=== PATIENT | female | born 1960 | race Caucasian/White ===

== ENCOUNTER → 2016-11-24 | Outpatient (CLI) | payer MEDICARE, OTHER ==
[~2016-11-24] MED LIST: ADVAIR 250/501 EA INH; ADVAIR 500/501 E1 INH; AMOXICILLIN500 MG PO; ATIVAN0.5 MG PO; BREO ELLIPTA 21 EACH IH; CIPRO500 MG PO; CIPROFLOXACIN500 MG PO; CLARITIN10 MG PO; DULER200 INH; FERROUS SULFAT325 M1 PO; FIBERCON625 MG PO; FISH OIL 10001000 MG PO; FLAGYL500 MG PO; FLEXERIL10 MG PO; GENACOTE325 MG PO; Ipratropium Brom3 ML IH; LOPID600 M1 PO; LOPID600 MG PO; LOPRESSOR50 MG PO; LYRICA50 MG PO; LYRICA75 M1 PO; LYRICA75 MG PO; METFORMIN500 MG PO; METOPROLOL25 MG PO; MIRALAX POWDER17 G1 PO; MIRALAX17 GM/DOSE PO; MOTRIN800 MG PO; MULTIPLE VITAMI1 CAP PO; NEURONTIN600 MG PO; NITRODISC T; NITROGLYCER0.4 MG/HR TD; PLAVIX75 MG PO; PRAVACHOL80 MG PO; PREDNICOT20 MG PO; PRILOSEC20 MG PO; PROMETHAZINE25 M1 PO; PROZAC10 MG PO; PROZAC40 MG PO; REGLAN10 MG PO; SENOKOT S PO; SUPER B COMPLEX1 CAP PO; TESSALON PERLE200 MG PO; ULTRAM50 MG PO; VENTOLIN0.09 MG/AC IH; VIBRAMYCIN100 MG PO; VICO75300 PO; VICODIN 5-3001 EACH PO; VICODIN 5/500 505 MG PO; VICODIN ES 7501 TA1 PO; VICODIN ES 7501 TAB PO; VITAMIN C500 M4 PO; VITAMIN D32000 I1 PO; ZITHROMAX Z PA250 MG PO; ZYPREXA5 MG PO
--- NOTE | ~2016-11-24 | PR ---
[place], [place] PROGRESS NOTE NAME: RANULFO BELLO [facility] #: [id number] UNIT #: [id number] ROOM: DOCTOR: SAPPHIRE HellerUZAIR BIRTHDATE: [birth year] DOS: 11/24/2016 FOLLOWUP WOUND CARE NOTE CHIEF COMPLAINT: Followup of abdominal wound. HISTORY OF PRESENT ILLNESS: The location is on the anterior abdominal wall. The quality is surgical. The duration is chronic since January. The severity is moderate to severe. She has had this wound now present for many months. We have had a lot of improvement in the depth of the wound; however, the wound continues to be open and quite large. Recently she had had some increased breakdown and wound margins have become larger and there was continued amount of drainage. The area was cultured last week after debridement and it grew heavy growth of enterococcus, which was vancomycin resistant as well as Acinetobacter, which was also multidrug resistant. The patient was started on Dakin's solution to be cleansed with daily and then using Maxorb silver on it. We initially had just tried some brief TheraHoney, but she has just been using the Maxorb silver at this time. She was started on oral antibiotics, 2 different antibiotics to cover the 2 different organisms, although the patient does not have signs of sepsis or any systemic symptoms. The wound does appear to be infected clinically, which is causing this nonhealing state and increasing wound margins. The patient reports no specific complaints at this time. No fevers or chills. PHYSICAL EXAMINATION: VITAL SIGNS: Stable. She is not having any problems with diarrhea. Blood pressure is 102/60, pulse of 60, respirations 16, temperature is 98.1. The wound margins are slightly bigger at 19.6 x 11 x 0.3 at the deepest depth. However, the depth is essentially 0.1 throughout most of the wound except for a small area near the 9 o'clock position, which has been deeper in that area, but overall it is 0.1. There does not appear to be any perfuse necrotic tissue. There does seem to be some new epithelial tissue sporadically present within the base of the wound, which was not apparent on last visit. A selective debridement was done today just to remove the fibrin and slough from the wound. This is not a deep debridement, just a selective. There was really no bleeding. Post-debridement measurements are unchanged. The instrument utilized was a curette. Cetacaine spray was used for topical anesthesia. 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 We are treating her with antibiotics. She is going to continue with Dakin solution for now and a Maxorb silver dressing for now as well. Once that seems if this is stabilized, we would like to try to use the Amniofil for her, but I do not want to use it while we have evidence of increased critical colonization. Followup is in 1 week. The patient is to call us before that if there are any new issues. [place], [place] PROGRESS NOTE [facility] #: [id number] UNIT #: [id number] ROOM: DOCTOR: UZAIR LEARY M.D. BIRTHDATE: [birth year] UZAIR LEARY MD CM:RENATO [id number] UZAIR LEARY M.D. 11/25/16 1022 interface
== END ==
LOC: WOUNDCARE 01:23
DX: T81.31XD Disruption of external operation (surgical) wound, not elsewhere classified, subsequent encounter (principal); E11.9 Type 2 diabetes mellitus without complications; B95.2 Enterococcus as the cause of diseases classified elsewhere; Y83.9 Surgical procedure, unspecified as the cause of abnormal reaction of the patient, or of later complication, without mention of misadventure at the time of the procedure

== ENCOUNTER → 2016-11-29 | Outpatient (CLI) | payer MEDICARE, OTHER ==
--- NOTE | ~2016-11-29 | PR ---
[place], [place] PROGRESS NOTE NAME: RANULFO BELLO [facility] #: [id number] UNIT #: [id number] ROOM: DOCTOR: SAPPHIRE HellerUZAIR BIRTHDATE: [birth year] DOS: 11/29/2016 WOUND CARE FOLLOWUP NOTE CHIEF COMPLAINT: Followup of abdominal wound. HISTORY OF PRESENT ILLNESS: The location is the anterior abdominal wall. The quality is surgical. Duration is 10 months. Severity is moderate to severe. She has had a very large open wound since she has had surgery for diverticular repair. The wound has been progressively getting smaller; however, has become stagnant with the past couple of weeks and some worsening of the wound with increased areas of breakdown. The patient was noted to have large amounts of Enterococcus and Acinetobacter growing in the wound. She has been started on antibiotics, has 2 more days left as well as cleansing the wound with Dakin solution. The wound is definitely getting smaller. At this point, she is using the Maxorb silver at home. It still does drain a bit, but overall, is not worse. OBJECTIVE: VITAL SIGNS: Stable. Blood pressure is 100/60, pulse of 60, respirations 16, temperature is 98.1. SKIN: The wound is measuring 15.5 x 8.2 x 0.3 in depth. Throughout this, this interspersed some areas of epithelialization and small islands of epithelial tissue are noted, so it does look improved. Overall, there is really minimal fibrin slough present at the base of the wound. Selective debridement was done today. The instrument used was a curette. There was a minimal amount of bleeding. The tissue removed was just fibrin slough, biofilm only. Post-debridement measurements are unchanged. Bleeding was controlled with pressure. The patient tolerated the procedure well. A timeout was conducted prior to the start of the procedure and Cetacaine spray was used for topical anesthesia. ASSESSMENT AND PLAN: Improving wound margins at this time since we have been treating infection. We will back down on the Dakin's to just every other day cleansing with Dakin's. In the meantime, she will just use normal saline on the opposite days and she will continue with the Maxorb silver. I am hoping the next week, we will be able to use amniofill further improve and progress with healing. Followup is in one week. [place], [place] PROGRESS NOTE NAME: RANULFO BELLO UNIT #: [id number] ROOM: DOCTOR: UZAIR LEARY M.D. BIRTHDATE: [birth year] UZAIR LEARY MD CM:RENATO [id number] UZAIR LEARY M.D. 12/01/16 1546 interface
== END | disposition home or self-care (01) ==
LOC: WOUNDCARE 01:31
DX: T81.31XD Disruption of external operation (surgical) wound, not elsewhere classified, subsequent encounter (principal); E11.9 Type 2 diabetes mellitus without complications; Y83.9 Surgical procedure, unspecified as the cause of abnormal reaction of the patient, or of later complication, without mention of misadventure at the time of the procedure

== ENCOUNTER → 2017-01-26 | Outpatient (CLI) | payer MEDICARE, OTHER ==
--- NOTE | ~2017-01-26 | PR ---
[place], [place] PROGRESS NOTE NAME: RANULFO BELLO [facility] #: [id number] UNIT #: [id number] ROOM: DOCTOR: SAPPHIRE HellerUZAIR BIRTHDATE: [birth year] DOS: 01/26/2017 CHIEF COMPLAINT: An open abdominal wound. HISTORY OF PRESENT ILLNESS: Elements: The location is the abdominal wall. The quality is surgical. The wound has been present almost a year. This is a 56-year-old female who underwent elective surgery for diverticulitis and ended up with an open abdominal wound that was quite large and deep that was left to heal by secondary intention. She had been seen by multiple surgeons for consultation regarding closure and most recently was seen last week for another opinion and the surgeon also stated that the patient should just wait for further healing and to not consider surgery at this time. She has been using Mepilex Transfer dressing which seems to really be absorbing a lot more than it had before. She had been using Maxorb before and this seems to be really helping with her. In general, she is doing fairly well without any specific complaints. PHYSICAL EXAMINATION: VITAL SIGNS: Stable. Blood pressure is 90/52, pulse of 64, respirations 16, temperature is 98.2. SKIN: The wound is measuring 21.5 x 10.6 x 0.3. Definitely it looks clean. There is really no surrounding erythema. There is very minimal fibrin slough present, but overall looks good and there is an island of skin growing in the middle of that. A debridement was done. The tissue removed was fibrin, slough, and subcutaneous tissue. This was accomplished with a curette. The patient tolerated the debridement well. Since the wound appears stable at this time without any clinical signs of infection, we will go ahead and use the AmnioFill graft which we have had for her. This was applied on the entire wound, avoiding the island where there was skin growing. It was rehydrated with some normal saline and left in place to incorporate afterwards. Adaptic was applied as well as Steri-Strips. A secondary dressing was used over this. ASSESSMENT AND PLAN: Surgical wound, chronic. At this time, we used the AmnioFill today and I would like to see her again on Tuesday to reevaluate. She is to keep the AmnioFill and Adaptic in place until coming back to the Wound Clinic. She is to call if there are any concerns or problems before then. Have her follow up early next Tuesday for evaluation. I will also continue with her oral antibiotics for now, as this does seem to really be helping with the drainage that she had before. [place], [place] PROGRESS NOTE NAME: RANULFO BELLO UNIT #: [id number] ROOM: DOCTOR: UZAIR LEARY M.D. BIRTHDATE: [birth year] UZAIR LEARY MD CM:RENATO [phone] UZAIR LEARY M.D. 01/26/17 1658 interface
== END ==
LOC: WOUNDCARE 03:12
DX: T81.31XA Disruption of external operation (surgical) wound, not elsewhere classified, initial encounter (principal); E11.628 Type 2 diabetes mellitus with other skin complications; Y83.8 Other surgical procedures as the cause of abnormal reaction of the patient, or of later complication, without mention of misadventure at the time of the procedure

== ENCOUNTER → 2017-01-31 | Outpatient (CLI) | payer MEDICARE, OTHER ==
--- NOTE | ~2017-01-31 | PR ---
[place], [place] PROGRESS NOTE NAME: RANULFO BELLO [facility] #: [id number] UNIT #: [id number] ROOM: DOCTOR: SAPPHIRE HellerUZAIR BIRTHDATE: [birth year] DOS: 01/31/2017 CHIEF COMPLAINT: An open abdominal wound. HISTORY OF PRESENT ILLNESS: The location is the abdominal wall. The quality is surgical. The wound has been present for almost a year. This is a 56-year-old female who underwent elective surgery for diverticulitis, ended up with a very complex open abdominal wound that has been quite deep and quite large. It has been gradually improving; however, we have had some setbacks recently with increased drainage and some evidence of critical colonization/wound infection. She was being treated with Bactrim, which seems to have helped, the drainage got quite excessive and this seems to be managed much more efficiently with the Mepilex transfer that she has. She did have one-time trial last week of AmnioFill that was placed in the wound base over the entire wound. It did cover quite a bit of the wound and then an Adaptic was placed over this and then the Mepilex transfer over that. She was brought in a little bit earlier to ensure that this remains stable; however, she said shortly after that within 2 days, the Adaptic came off and she seemed to feel that most of the AmnioFill had dissolved into the wound by that time, but had only been in place for a day or two afterwards. OBJECTIVE: VITAL SIGNS: She is afebrile, pulse is 62, respirations 16, blood pressure is 108/64. The wound is measuring 19.5 x 10 in width x 0.3 in depth. There is really no overt necrotic tissue. There is no sign of cellulitis. The wound looks fairly clean. No debridement was done today. ASSESSMENT AND PLAN: Surgical wound, chronic. At this time, we have used the AmnioFill. It has been almost a week. I would like to hold off on debridement for at least another week and then have her come back for followup in one week. We will continue with the Mepilex transfer for now and have her finish up her course of oral antibiotics. She is to come back in 1 week. In the meantime, the patient said she was able to get a hold of a plastic surgeon that she is going to be evaluated for a second opinion regarding skin grafting, that is going to be early in February, and we will see if we can get the patient approved for another biologic agent that will facilitate wound closure. [place], [place] PROGRESS NOTE NAME: RANULFO BELLO UNIT #: [id number] ROOM: DOCTOR: UZAIR LEARY M.D. BIRTHDATE: [birth year] UZAIR LEARY MD CM:RENATO [phone] UZAIR LEARY M.D. 01/31/17 2330 interface
== END ==
LOC: WOUNDCARE 01:40
DX: T81.31XD Disruption of external operation (surgical) wound, not elsewhere classified, subsequent encounter (principal); E11.628 Type 2 diabetes mellitus with other skin complications; I48.91 Unspecified atrial fibrillation; Y83.8 Other surgical procedures as the cause of abnormal reaction of the patient, or of later complication, without mention of misadventure at the time of the procedure

== ENCOUNTER → 2017-02-07 | Outpatient (CLI) | payer MEDICARE, OTHER ==
--- NOTE | ~2017-02-07 | PR ---
[place], [place] PROGRESS NOTE NAME: RANULFO BELLO [facility] #: [id number] UNIT #: [id number] ROOM: DOCTOR: SAPPHIRE Heller,UZAIR BIRTHDATE: [birth year] DOS: 02/07/2017 CHIEF COMPLAINT: Open abdominal wound. HISTORY OF PRESENT ILLNESS: The location is the abdominal wall. The quality is surgical, the wound has been present for a year. She underwent elective surgery for diverticulitis and has had a complex abdominal wound that has been healing by secondary intention. She has had some issues and setbacks with increased drainage and critical colonization wound infection, which seems to be under control at this time. She had an AmnioFill graft placed 2 weeks ago and she comes in for a wound care visit today without any specific complaints. There is no change in drainage and overall no fevers or chills. No pain is noted. OBJECTIVE: VITAL SIGNS: Stable. Blood pressure is 100/62, pulse is 60, respirations 16, temperature 98.2. ABDOMEN: The wound is measuring 18 x 9.8 x 0.3. It looks overall about the same. There is no surrounding cellulitis. There is no overt infection. There is really no visible necrotic tissue, debridement was deferred today. ASSESSMENT AND PLAN: Chronic abdominal wound, very slow healing. We will hold off on debridement today and use a collagen for now as well as she can go back to her Mepilex Transfer after that, so will have her follow up in 1 week. I hope that we can get her approved for possible skin substitute as soon as possible. UZAIR LEARY MD CM:PNTRANS [id number] UZAIR LEARY M.D. 02/08/17 0334 interface
== END ==
LOC: WOUNDCARE 04:43
DX: T81.31XD Disruption of external operation (surgical) wound, not elsewhere classified, subsequent encounter (principal); E11.628 Type 2 diabetes mellitus with other skin complications; Y83.8 Other surgical procedures as the cause of abnormal reaction of the patient, or of later complication, without mention of misadventure at the time of the procedure

== ENCOUNTER → 2017-02-14 | Outpatient (CLI) | payer MEDICARE, OTHER ==
--- NOTE | ~2017-02-14 | PR ---
[place], [place] PROGRESS NOTE NAME: RANULFO BELLO [facility] #: [id number] UNIT #: [id number] ROOM: DOCTOR: UZAIR LEARY M.D. BIRTHDATE: [birth year] DOS: 02/14/2017 CHIEF COMPLAINT: Open abdominal wound. HISTORY OF PRESENT ILLNESS: The location is the abdominal wall. The quality is surgical. The wound has been present for a year. She has had elective diverticulitis surgery with a complex abdominal wound that has been healing by secondary intention. She has had no specific new complaints. We have held off on debridement for 2 weeks in a row as she had an amnio filled graft placed 3 weeks ago. She has no specific complaints. She is wanting to exercise on her stationary bike. OBJECTIVE: VITAL SIGNS: As follows: Blood pressure is 98/60, pulse of 62, respirations 16, temperature is 98.1. WOUND EXAMINATION: The wound is measuring 19.8 x 12. The length is measuring slightly larger; however, the overall appearance of the wound is good. It does not look any different. The measurements are a little bit larger at 12 x 0.3. There is an island of epithelial tissue in the center of the wound that is noted. It looks clean. There is minimal fibrin and slough. The overall appearance of the wound looks good. Debridement was done. The tissue removed was just fibrin and slough. There was a minimal amount of bleeding. The post-debridement measurements are unchanged. The patient tolerated the debridement well. Cetacaine spray was used for topical anesthesia. Timeout was conducted prior to the start of the procedure. ASSESSMENT AND PLAN: Chronic abdominal wound. I believe she is ready for a skin graft if possible. She has seen Surgery who felt that she was not a surgical candidate. She has another consultation with a new plastic surgeon next month. We will continue with the collagen for now and then when she goes home, she will use her Mepitel Transfer. I believe that she will need a biologic to help close this wound. We will see if this is a possibility in the near future. Follow up in 1 week. [place], [place] PROGRESS NOTE NAME: RANULFO BELLO [facility] #: [id number] UNIT #: [id number] ROOM: DOCTOR: UZAIR LEARY M.D. BIRTHDATE: [birth year] UZAIR LEARY MD CM:RENATO [phone] UZAIR LEARY M.D. 02/14/17 1026 interface
== END ==
LOC: WOUNDCARE 09:21
DX: T81.31XD Disruption of external operation (surgical) wound, not elsewhere classified, subsequent encounter (principal); E11.628 Type 2 diabetes mellitus with other skin complications; Y83.8 Other surgical procedures as the cause of abnormal reaction of the patient, or of later complication, without mention of misadventure at the time of the procedure

== ENCOUNTER → 2017-02-21 | Outpatient (CLI) | payer MEDICARE, OTHER ==
--- NOTE | ~2017-02-21 | PR ---
[place], [place] PROGRESS NOTE NAME: EUGENIAFRANKLINRANULFO J [facility] #: [id number] UNIT #: [id number] ROOM: DOCTOR: SAPPHIRE HellerUZAIR BIRTHDATE: [birth year] DOS: 02/21/2017 CHIEF COMPLAINT: Open abdominal wound. HISTORY OF PRESENT ILLNESS: Location is the abdominal wall. The quality is surgical. The wound has been present for a year. She has had almost a year elective diverticulitis surgery with complex abdominal wound postoperatively secondary to multiple postop complications. She has been healing by secondary intention. She has been seen by Surgery twice and has also been seen for possible skin substitute graft placement operatively which was elected to not be done. She continues to have an open abdominal wound. The wound has been draining less overall. It is not causing any pain or discomfort. No fevers or chills. She offers no specific complaints. PHYSICAL EXAMINATION: VITAL SIGNS: Are as follows: She is afebrile, pulse is 60, respirations 16, blood pressure is 128/62. WOUND EXAMINATION: The wound is measuring 18.4 x 10.5 x 0.2. There is minimal fibrin slough present in the base of the wound. There is a small island of epithelium in the middle of the wound that appears to be slightly bigger than the last time we saw her. There is some area of erythema around the periwound, which is consistent with a fungal type appearance, which is new. A debridement was done today. The tissue removed was fibrin, slough and subcutaneous tissue. There was moderate amount of bleeding. Post-debridement measurements are unchanged. INSTRUMENTS USED: Curette, forceps and scissors. Cetacaine spray used for topical anesthesia and bleeding was controlled with pressure. ASSESSMENT AND PLAN: Large abdominal wound, which has been slowly healing by secondary intention. We are using a collagen and a Mepitel Transfer. She does have an evidence of some fungal type appearance on the periwound. So we will add an antifungal cream to the periwound area only. She is going to be evaluated by a plastic surgeon for possible skin grafting hopefully she will be a candidate. Followup is next week. [place], [place] PROGRESS NOTE NAME: RANULFO BELLO [facility] #: [id number] UNIT #: [id number] ROOM: DOCTOR: UZAIR LEARY M.D. BIRTHDATE: [birth year] UZAIR LEARY MD CM:RENATO [phone] UZAIR LEARY M.D. 02/22/17 0235 interface
== END ==
LOC: WOUNDCARE 02:10
DX: T81.31XA Disruption of external operation (surgical) wound, not elsewhere classified, initial encounter (principal); S31.109D Unspecified open wound of abdominal wall, unspecified quadrant without penetration into peritoneal cavity, subsequent encounter; E11.628 Type 2 diabetes mellitus with other skin complications; I48.91 Unspecified atrial fibrillation; Y83.8 Other surgical procedures as the cause of abnormal reaction of the patient, or of later complication, without mention of misadventure at the time of the procedure; X58.XXXD Exposure to other specified factors, subsequent encounter

== ENCOUNTER → 2017-03-02 | Outpatient (CLI) | payer MEDICARE, OTHER ==
--- NOTE | ~2017-03-02 | PR ---
[place], [place] PROGRESS NOTE NAME: EUGENIAFRANKLINRANULFO [facility] #: [id number] UNIT #: [id number] ROOM: DOCTOR: UZAIR LEARY M.D. BIRTHDATE: [birth year] DOS: 03/02/2017 CHIEF COMPLAINT: Followup of an open abdominal wound. HISTORY OF PRESENT ILLNESS: Location is the abdominal wall. The quality is surgical. The wound has been present for almost a year now. She had a very complex diverticulitis surgery with multiple postop complications that has left her with a very large deep abdominal wound that has been slowly healing by secondary intention. She is doing well at this time without any specific complaints. Drainage appears to be controlled with a Mepilex. No other specific complaints are noted. She has a Plastic Surgical consult early next month. PHYSICAL EXAMINATION: VITAL SIGNS: Stable. Blood pressure is 100/64, pulse of 60, respirations 18, temperature is 97.8. WOUND EXAM: The wound is measuring about the same in length 18.4, the width is slightly less at 10, the depth is 0.2. Overall, it looks clean. There is some minimal fibrin slough at the wound base. There is a good amount of healthy granulation tissue. No active cellulitis. Debridement was done, The tissue removed was fibrin slough only. There was moderate amount of bleeding that was controlled with pressure. Post-debridement measurements are unchanged. Curette was used for the procedure. Cetacaine spray was applied for topical anesthesia. ASSESSMENT AND PLAN: Postop abdominal wound that is slowly healing. There is quite a large island of epithelial tissue in the center of the wound, which appears stable at this time and seems to be growing. The wound remains, however, quite large. We have tried to see if she is a candidate for EpiFix graft. Her insurance did not approve for this, so this is not an option. She is going to see a surgeon next month. Epidermal harvesting is also a consideration; however, we do not have it available at this time. Followup is in one week. We will continue with the collagen in the Wound Clinic and Mepilex at home. [place], [place] PROGRESS NOTE NAME: RANULFO BELLO [facility] #: [id number] UNIT #: [id number] ROOM: DOCTOR: UZAIR LEARY M.D. BIRTHDATE: [birth year] UZAIR LEARY MD CM:RENATO [phone] UZAIR LEAYR M.D. 03/02/17 1027 interface
== END ==
LOC: WOUNDCARE 02-10 10:19
DX: T81.31XD Disruption of external operation (surgical) wound, not elsewhere classified, subsequent encounter (principal); E11.628 Type 2 diabetes mellitus with other skin complications; Y83.8 Other surgical procedures as the cause of abnormal reaction of the patient, or of later complication, without mention of misadventure at the time of the procedure

== ENCOUNTER → 2017-03-07 | Outpatient (CLI) | payer MEDICARE, OTHER ==
--- NOTE | ~2017-03-07 | PR ---
[place], [place] PROGRESS NOTE NAME: RANULFO BELLO [facility] #: [id number] UNIT #: [id number] ROOM: DOCTOR: SAPPHIRE Heller,UZAIR BIRTHDATE: [birth year] DOS: 03/07/2017 CHIEF COMPLAINT: Abdominal wound. HISTORY OF PRESENT ILLNESS: The location is the abdominal wall. The quality is surgical. The wound has been present for a year now. She has had a very complex history of multiple abdominal surgeries that left her with a large abdominal wall wound, which has been healing by secondary intention. She has no specific complaints. She is going to have see a plastic surgeon next month for an opinion about surgical intervention to close the wound. Otherwise, she has no specific complaints. No change in drainage. PHYSICAL EXAMINATION: VITAL SIGNS: Stable. Blood pressure is 102/62, pulse is 60, respirations 18, temperature is 97.9. WOUND EXAM: The wound is measuring 18 x 10 x 0.2. There is still an area of epithelialization in the center of the wound. The wound itself looks fairly clean, and there is no surrounding cellulitis or purulence. Debridement was done. The tissue removed was fibrin, slough and subcutaneous tissue. There was minimal to moderate amount of bleeding that was controlled with pressure. Post-debridement measurements are unchanged. ASSESSMENT AND PLAN: Chronic slowly healing abdominal wall wound, which has been stalled for a while now. We will continue with the collagen and the Mepilex transfer and have her follow up in 1 week. She is going to follow up with Plastic Surgery for possible surgical intervention. Another option that we can try again is EpiFix, allograft with the mesh perhaps. We filled the forms before, and she was denied coverage; however, since the wound is still staying open and has not epithelialized, I would like to consider a repeat try, so the information was written on the paperwork. Hopefully, she will be approved, and we can consider this if Plastic Surgery does not feel she is a surgical candidate. Followup in one week. UZAIR LEARY MD CM:RENATO [phone] UZAIR LEARY M.D. 03/07/172119 interface
== END ==
LOC: WOUNDCARE 02:05
DX: T81.31XA Disruption of external operation (surgical) wound, not elsewhere classified, initial encounter (principal); E11.628 Type 2 diabetes mellitus with other skin complications; Y83.8 Other surgical procedures as the cause of abnormal reaction of the patient, or of later complication, without mention of misadventure at the time of the procedure

== ENCOUNTER → 2017-03-14 | Outpatient (CLI) | payer MEDICARE, OTHER ==
--- NOTE | ~2017-03-14 | PR ---
[place], [place] PROGRESS NOTE NAME: RANULFO BELLO [facility] #: [id number] UNIT #: [id number] ROOM: DOCTOR: SAPPHIRE HellerUZAIR BIRTHDATE: [birth year] DOS: 03/14/2017 CHIEF COMPLAINT: Abdominal wound. HISTORY OF PRESENT ILLNESS: The location is the abdominal wall, the quality is surgical. The wound has been present for a year, very complex history of multiple abdominal surgeries for diverticulitis that ended up with a very large abdominal wound. It was quite deep that was healing secondary intention. She has been in the Wound Clinic for approximately almost a year. The wound has healed a significant amount in the very beginning and then we have had some stalling in the progress of the wound. Actually, she has just been to see general surgeons for possible closure. They did not feel she is a candidate for that. She is going to see a plastic surgeon today for another opinion to see if there are any options for surgical closure. Otherwise, she complains of no specific complaints. Her sugars are well controlled. She is not having any increased amount of drainage. No fevers or chills are noted. OBJECTIVE: VITAL SIGNS: Are as follows, temp is 98.2, pulse is 62, respirations 18, and blood pressure is 100/60. The wound is measuring 18 x 8.6 x 0.2. So, the measurements seem a little bit less wide than last time. There is some minimal fibrin slough present in the base of the wound. The periwound looks clean. There is some adherent slough present in the periwound area. No cellulitis is noted. No purulence is noted. A selective debridement was done to remove just fibrin and slough only. This was accomplished with a curette, forceps, and scissors. This is a selective debridement only. Tissue removed was nonviable only. Also, there is minimal bleeding. Cetacaine spray was used for topical anesthesia and a timeout was conducted prior to the start of the procedure. Post-debridement measurements are unchanged. ASSESSMENT AND PLAN: Chronic slowly healing abdominal wound. She is going to see a plastic surgeon today for possible closure and if she is not considered a candidate, I do believe we have approval to use EpiFix on her and I think she will be a good candidate for this, so we will see what the plastic surgeon says first. Followup is in 1 week. [place], [place] PROGRESS NOTE NAME: [facility]: [id number] UNIT #: [id number] ROOM: DOCTOR: UZAIR LEARY M.D. BIRTHDATE: [birth year] UZAIR LEARY MD CM:RENATO [phone] UZAIR LEARY M.D. 03/15/17106 interface
== END ==
LOC: WOUNDCARE 00:51
DX: T81.31XD Disruption of external operation (surgical) wound, not elsewhere classified, subsequent encounter (principal); E11.628 Type 2 diabetes mellitus with other skin complications; Y83.8 Other surgical procedures as the cause of abnormal reaction of the patient, or of later complication, without mention of misadventure at the time of the procedure

== ENCOUNTER → 2017-03-21 | Outpatient (CLI) | payer MEDICARE, OTHER ==
--- NOTE | ~2017-03-21 | PR ---
[place], [place] PROGRESS NOTE NAME: RANULFO BELLO [facility] #: [id number] UNIT #: [id number] ROOM: DOCTOR: SAPPHIRE HellerUZAIR BIRTHDATE: [birth year] DOS: 03/21/2017 CHIEF COMPLAINT: Abdominal wound. HISTORY OF PRESENT ILLNESS: The location of the wounded is the abdominal wall. The quality is surgical, it has been present for a year. She had a very complex history of multiple surgeries that ended up with the large abdominal wound that was quite deep and has been open healing by secondary intention. She has been coming to the Wound Clinic for 49 weeks now, and we have continued to heal quite slowly in the very last couple of weeks. The wound has filled in quite a bit and now just lacks final closure, she was seen by Plastic Surgery last week who felt that surgery could be done, but apparently once her hernia repair and her fistula repair is prior to surgery. She says she is definitely going to have surgery at some point soon for this, but first they want her to have her rectovaginal fistula fixed first. In addition, they told her that she did not need any dressings other than a simple ABD pad, so she just went with their recommendations. PHYSICAL EXAMINATION: VITAL SIGNS: Stable. Temperature is 97.5, pulse of 60, respirations 16, blood pressure is 112/60. WOUND EXAM: The wound is measuring slightly longer at 23.3 x 10 x 0.2. There is evidence of wound margins are bigger likely secondary to the fact that the dressing is not absorbing as much drainage as before. The island that is present in the middle of the abdomen also looks to have been deteriorated somewhat. Selective debridement was done today. The tissue removed was just nonviable fibrin and slough. There was moderate bleeding that was controlled with pressure. The patient tolerated the debridement well. ASSESSMENT AND PLAN: Chronic abdominal wound, I would continue with the dressings that we recommended for now. At least those dressings help absorb drainage and keep the drainage at the bay and do seem to help the wound margins. She is going to have surgery for final closure at some point in the near future. Also, we will continue with wound care until then. Followup is in one week. She is going to have a CT scan done that was ordered by the surgeon. So hopefully, we will get that report as well. [place], [place] PROGRESS NOTE [facility]: [id number] UNIT #: [id number] ROOM: DOCTOR: UZAIR LEARY M.D. BIRTHDATE: [birth year] UZAIR LEARY MD CM:RENATO [id number] UZAIR LEARY M.D. 03/22/17 0314 interface
== END ==
LOC: WOUNDCARE 01:09
DX: T81.31XD Disruption of external operation (surgical) wound, not elsewhere classified, subsequent encounter (principal); E11.628 Type 2 diabetes mellitus with other skin complications; Y83.8 Other surgical procedures as the cause of abnormal reaction of the patient, or of later complication, without mention of misadventure at the time of the procedure

== ENCOUNTER → 2017-03-28 | Outpatient (CLI) | payer MEDICARE, OTHER ==
--- NOTE | ~2017-03-28 | PR ---
[place], [place] PROGRESS NOTE NAME: RANULFO BELLO [facility] #: [id number] UNIT #: [id number] ROOM: DOCTOR: SAPPHIRE HellerUZAIR BIRTHDATE: [birth year] DOS: 03/28/2017 CHIEF COMPLAINT: Abdominal wound. HISTORY OF PRESENT ILLNESS: Location of wound is the abdominal wall. The quality is surgical. It has been present for a year without healing. She is going to have a surgical intervention for closure at some point, but the date has not been set yet. She is still getting worked up as far as she had an abdominal CT scan done at [place]. We do not have the report. She is supposed to have a rectovaginal fistula repair as well as a hernia repair prior to her getting a plastic surgical closure, so these are going to be done first. She has no other specific complaints. Her daughter is here with her, and thinks that the wound is looking smaller. She also reports unfortunately that there is some irritation around her stoma, and there seems to be some ulcerations there. She did not bring any of the material to change her colostomy, but does describe ulceration and irritation around the stoma wound. States she has Coloplast at home, but has not used it yet. I did advise her to go ahead and let us have her bring her supplies next week so that we can look at the area, to try the Coloplast for now, and also she reports that at times her mother walks around without a dressing on at all on the abdominal area and feels that she is potentially at risk of contamination because of this. The patient has no other specific complaints. OBJECTIVE: VITAL SIGNS: Stable. Blood pressure is 110/64, pulse of 60, respirations 16, temperature is 97.7. WOUND EXAM: The wound is measuring less this week than last week 21 x 9 x 0.2. It definitely looks smaller. There is still an island in the distal part of the wound that is still present. There is no purulence or surrounding cellulitis. A selective debridement was done. The tissue removed with fibrin, slough, and biofilm. There was a minimal amount of bleeding, 90% of the area was debrided. The patient tolerated the debridement well, minimal amount of bleeding that was controlled with pressure. A curette was utilized. ASSESSMENT AND PLAN: Chronic abdominal wall wound secondary to surgical procedure. We are going to continue with wound care for now to hopefully prevent the wound infection as this will delay her surgery, and we do not know when she is going to have any of her surgical interventions. Hopefully, they will be done soon. In the meantime, we did recommend for her to continue to keep the wound care orders that we have written for as well as to keep the area covered and protected. Followup is in 1 week. [place], [place] PROGRESS NOTE [facility] [id number] UNIT #: [id number] ROOM: DOCTOR: UZAIR LEARY M.D. BIRTHDATE: [birth year] UZAIR LEARY MD CM:RENATO [phone] UZAIR LEARY M.D. 03/29/17 0502 interface
== END ==
LOC: WOUNDCARE 03:38
DX: T81.31XD Disruption of external operation (surgical) wound, not elsewhere classified, subsequent encounter (principal); E11.628 Type 2 diabetes mellitus with other skin complications; Y83.8 Other surgical procedures as the cause of abnormal reaction of the patient, or of later complication, without mention of misadventure at the time of the procedure

== ENCOUNTER → 2017-04-04 | Outpatient (CLI) | payer MEDICARE, OTHER ==
--- NOTE | ~2017-04-04 | PR ---
[place], [place] PROGRESS NOTE NAME: RANULFO BELLO [facility] #: [id number] UNIT #: [id number] ROOM: DOCTOR: SAPPHIRE Heller,UZAIR BIRTHDATE: [birth year] DOS: 04/04/2017 CHIEF COMPLAINT: Abdominal wound. HISTORY OF PRESENT ILLNESS: The location is the abdominal wall. The quality is surgical. She has had it for a year without complete healing. She is being worked up for surgical procedures to reverse her colostomy and repair of rectovaginal fistula as well as surgery for final closure of the wound. The patient had a CT scan done in [place]. She does not know what the report says. She comes in today for a routine wound care visit without any complaints with the wound. No change in drainage. No pain, no fevers or chills. PHYSICAL EXAMINATION: She is afebrile, pulse is 64, respirations 16, and blood pressure is 98/60. The wound is measuring 20.2 x 10 x 0.2. It looks fairly clean. There is minimal fibrin slough present. It is still, however, overall has not changed significantly within the past several months. A selective debridement was done to remove just fibrin, slough and biofilm. There was no bleeding. The patient tolerated the debridement well. Curette was utilized. Cetacaine spray was used for topical anesthesia. A timeout was conducted prior to start of the procedure. ASSESSMENT AND PLAN: Chronic surgical wound stalled. We are awaiting her for possible surgical intervention hopefully soon. We will continue wound care; however, to prevent any problems with infection that may delay surgery. UZAIR LEARY MD CM:PNTRANS [phone] UZAIR LEARY M.D. 04/05/17 0841 interface
== END ==
LOC: WOUNDCARE 03:39
DX: T81.31XD Disruption of external operation (surgical) wound, not elsewhere classified, subsequent encounter (principal); E11.628 Type 2 diabetes mellitus with other skin complications; I48.91 Unspecified atrial fibrillation; Y83.8 Other surgical procedures as the cause of abnormal reaction of the patient, or of later complication, without mention of misadventure at the time of the procedure

== ENCOUNTER 2017-04-10 15:13 | Emergency (ER) | payer MEDICARE, OTHER | END 2017-04-10 15:50 | disposition home or self-care (01) | LOC: ED 15:13 | DX: S82.491A Other fracture of shaft of right fibula, initial encounter for closed fracture (principal); Z79.82 Long term (current) use of aspirin; Z90.49 Acquired absence of other specified parts of digestive tract; Z79.899 Other long term (current) drug therapy; W22.8XXA Striking against or struck by other objects, initial encounter; Y93.89 Activity, other specified; Y92.9 Unspecified place or not applicable; Y99.9 Unspecified external cause status ==

== ENCOUNTER → 2017-04-21 | Outpatient (CLI) | payer MEDICARE, OTHER ==
--- NOTE | ~2017-04-21 | PR ---
[place], [place] PROGRESS NOTE NAME: RANULFO BELLO [facility] #: [id number] UNIT #: [id number] ROOM: DOCTOR: SAPPHIRE HellerUZAIR BIRTHDATE: [birth year] DOS: 04/21/2017 CHIEF COMPLAINT: Followup of abdominal wound. HISTORY OF PRESENT ILLNESS: Location is the abdominal wall. It is a surgical wound. She has had it for a year without complete healing. The wound is filled in quite a bit, but we have not had epithelialization. She is going to have a surgical intervention for repair of a rectovaginal fistula as well as reversal of colostomy and sometime after that may have final closure of her abdominal wound from surgery. However, we do have the reports from the physician yet or notes from his office. She has no specific complaints. She has not been here for 3 weeks. She has also broken her foot and now is wearing a boot, which is a new thing for her. She says her sugars are good. OBJECTIVE: Her vitals are stable. Blood pressure is 198/60, pulse is 60, respirations 18, temp 97.8. The measurements are 22 x 11 x 0.1. There is some slight erythema around the margins of the wound. There is no odor or purulence detected or overt cellulitis. A debridement was done today. The tissue removed was fibrin, slough and biofilm. There was a moderate amount of bleeding that was controlled with pressure. The instrument used was a curette. The patient tolerated the debridement well, 100% of the wound was debrided. ASSESSMENT AND PLAN: Chronic abdominal wound, which has stalled. We will continue with the Mepitel transfer; however, I would like to use silver with it in addition for bioburden control. She has been off silver for quite some time now and there are some mildly increased margins of the wound and some inflammation around the edge of the wounds. So, I would like to use that for bioburden control for now and follow up in 1 week. I will request the CT scan report that she had done recently as well as any notes from the surgeon for her future surgical intervention. The patient also did report that she was placed on Bactrim for a urinary tract infection and now she has a rash from it, so she believes SHE IS ALLERGIC TO BACTRIM. So, we will make sure we get this on her chart. [place], [place] PROGRESS NOTE NAME: RANULFO BELLO UNIT #: [id number] ROOM: DOCTOR: SAPPHIRE Heller,UZAIR BIRTHDATE: [birth year] UZAIR LEARY MD CM:RENATO [phone] UZAIR ELARY M.D. 04/23/17 1040 interface
== END ==
LOC: WOUNDCARE 02:52
DX: T81.31XD Disruption of external operation (surgical) wound, not elsewhere classified, subsequent encounter (principal); E11.628 Type 2 diabetes mellitus with other skin complications; Y83.8 Other surgical procedures as the cause of abnormal reaction of the patient, or of later complication, without mention of misadventure at the time of the procedure

== ENCOUNTER → 2017-04-22 | Outpatient (CLI) | payer MEDICARE, OTHER | END | disposition home or self-care (01) | LOC: ORTHO 00:43 | DX: S82.891D Other fracture of right lower leg, subsequent encounter for closed fracture with routine healing (principal); S82.401D Unspecified fracture of shaft of right fibula, subsequent encounter for closed fracture with routine healing; X58.XXXD Exposure to other specified factors, subsequent encounter ==

== ENCOUNTER → 2017-04-28 | Outpatient (CLI) | payer MEDICARE, OTHER ==
--- NOTE | ~2017-04-28 | PR ---
[place], [place] PROGRESS NOTE NAME: RANULFO BELLO [facility] #: [id number] UNIT #: [id number] ROOM: DOCTOR: SAPPHIRE HellerUZAIR BIRTHDATE: [birth year] DOS: 04/28/2017 CHIEF COMPLAINT: Followup of abdominal wound. HISTORY OF PRESENT ILLNESS: The location of the wound is the abdominal wall, it is a surgical wound. She has had it for a little over a year now without epithelialization yet. The wound has healed and filled in quite a bit, however, it remains open. She is scheduled to undergo surgical intervention of a rectovaginal fistula and reversal of her colostomy and that is supposedly happening on 05/24/2017 per the patient report. I still have not gotten the CT scan reports back from her studies. She states that the surgeon wants her to get her hernia repair fixed first before they can go and repair the abdominal wound, but in any case, the patient comes in today without any specific complaints. No pain, no fevers, no chills. No change in drainage. There was some inflammation last week and slightly increased margins and the dressing was changed back to silver. However, she comes in today with just the plain Mepilex transfer without silver. OBJECTIVE: The vital signs are stable. Blood pressure is 98/68, pulse of 62, respirations are 18, temperature 97.8. The wound is measuring 19.4 x 10 x 0.1. There is minimal fibrin slough present. There is good granulation tissue, looks healthy. The periwound looks healthy. There is no sign of overt infection. Debridement was done. Tissue removed was fibrin, slough, and biofilm. There was moderate bleeding that was controlled with pressure. Post-debridement measurements are unchanged. Curette was utilized. Cetacaine spray was used for topical anesthesia. The patient tolerated the procedure. ASSESSMENT AND PLAN: Postop surgical wound, which is stable at this point. I would like to try to get the CT scan report from her workup that was done at another neighboring hospital. We will continue with the Mepilex transfer, but I want to add the silver to it, and I think that it would be easier to add Arglaes powder to the Mepilex transfer as she has those dressings at home without the silver. She should follow up in the Wound Clinic in one week. [place], [place] PROGRESS NOTE [facility] [id number] UNIT #: [id number] ROOM: DOCTOR: UZAIR LEARY M.D. BIRTHDATE: [birth year] UZAIR LEARY MD CM:RENATO [id number] UZAIR LEARY M.D. 04/28/17 1101 interface
== END ==
LOC: WOUNDCARE 00:25
DX: T81.31XD Disruption of external operation (surgical) wound, not elsewhere classified, subsequent encounter (principal); Y83.8 Other surgical procedures as the cause of abnormal reaction of the patient, or of later complication, without mention of misadventure at the time of the procedure; E11.628 Type 2 diabetes mellitus with other skin complications

== ENCOUNTER → 2017-05-05 | Outpatient (CLI) | payer MEDICARE, OTHER ==
--- NOTE | ~2017-05-05 | PR ---
[place], [place] PROGRESS NOTE NAME: RANULFO BELLO [facility] #: [id number] UNIT #: [id number] ROOM: DOCTOR: SAPPHIRE HellerUZAIR BIRTHDATE: [birth year] DOS: 05/05/2017 CHIEF COMPLAINT: Followup of abdominal wound. HISTORY OF PRESENT ILLNESS: Location of the wound is the anterior abdominal wall. It is a surgical wound. She has been coming to the Wound Clinic for over a year now. The wound remains open and not healed. It is essentially stalled. She is going to be having surgery and repair of a rectovaginal fistula and reversal of her colostomy that is happening early May. She has been seen by Dr. Perry, colon and rectal surgeon. However, the patient believes that he is not going to be doing anything with her abdominal wound until her hernia is fixed. However, her daughter is here with the patient today and says she was under the impression that the wound is going to be excised and she will have final closure of the wound. I have looked at whatever paper work we have gotten from the surgeon's office and there is really no definite plan put in place on this report. It does not say what the plans are going to be. In any case, we had started the patient on Arglaes powder to see if this will help absorb some of the drainage. The patient does not seem to be happy with this topical product, it leaves a film on it, it is difficult to remove and has not really made any difference with her wound. Otherwise she has no other specific complaints. PHYSICAL EXAMINATION: VITAL SIGNS: She is afebrile. Her pulse is 64, respirations 18, blood pressure is 104/60. WOUND EXAMINATION: The wound is measuring the same at 19 x 10.8 x 0.1. There is some minimal fibrin slough present. Otherwise, it looks about fairly clean. No sign of cellulitis, no purulence, no odor. A selective debridement was done to remove fibrin, slough and biofilm. There was a moderate amount of bleeding that was controlled with pressure. Post-debridement measurements are unchanged. A curette was utilized. I was able to look at her CT scan report finally, which shows a fistula from the vagina to the rectal stump. The only plan that has mentioned in the note is, impression is to attempt to restore continuity and she may need a temporary diversion, but there is really no mention of plans regarding the abdominal wound. ASSESSMENT AND PLAN: Chronic stalled surgical wound of the abdomen. At this point we are just using a dressing that will help control drainage as she has [id number] amount of serous drainage. There is no sign of an acute infection. We will discontinue the silver. Arglaes powder was utilized to see if we can help dry it up a little bit more; however, it has not really made any difference, so we will discontinue that. I did reach out to the surgeon's office regarding their plan for surgery to see if there is any plan regarding the wound for final closure. Followup in one week. [place], [place] PROGRESS [id number] #: [id number] ROOM: DOCTOR: UZAIR LEARY M.D. BIRTHDATE: [birth year] UZAIR LEARY MD CM:PNTRANS [phone] UZAIR LEARY M.D. 05/05/17 1101 interface
== END ==
LOC: WOUNDCARE 01:54
DX: T81.31XD Disruption of external operation (surgical) wound, not elsewhere classified, subsequent encounter (principal); E11.628 Type 2 diabetes mellitus with other skin complications; I48.91 Unspecified atrial fibrillation; Y83.8 Other surgical procedures as the cause of abnormal reaction of the patient, or of later complication, without mention of misadventure at the time of the procedure

== ENCOUNTER → 2017-05-12 | Outpatient (CLI) | payer MEDICARE, OTHER | LOC: WOUNDCARE 02:19 | DX: T81.31XD Disruption of external operation (surgical) wound, not elsewhere classified, subsequent encounter (principal); E11.622 Type 2 diabetes mellitus with other skin ulcer; L89.892 Pressure ulcer of other site, stage 2; Y83.8 Other surgical procedures as the cause of abnormal reaction of the patient, or of later complication, without mention of misadventure at the time of the procedure ==

== ENCOUNTER → 2017-05-13 | Outpatient (CLI) | payer MEDICARE, OTHER | END | disposition home or self-care (01) | LOC: ORTHO 02:01 | DX: S82.401D Unspecified fracture of shaft of right fibula, subsequent encounter for closed fracture with routine healing (principal); M25.471 Effusion, right ankle; M25.771 Osteophyte, right ankle; X58.XXXD Exposure to other specified factors, subsequent encounter ==

== ENCOUNTER → 2017-05-19 | Outpatient (CLI) | payer MEDICARE, OTHER | LOC: WOUNDCARE 00:28 | DX: T81.31XD Disruption of external operation (surgical) wound, not elsewhere classified, subsequent encounter (principal); E11.622 Type 2 diabetes mellitus with other skin ulcer; L89.892 Pressure ulcer of other site, stage 2; Y83.8 Other surgical procedures as the cause of abnormal reaction of the patient, or of later complication, without mention of misadventure at the time of the procedure ==

== ENCOUNTER 2017-06-10 22:23 | Emergency (ER) | payer MEDICARE, OTHER ==
[~2017-06-10] VITALS: Ht 152.4 cm; Wt 87.5 kg
[2017-06-10 23:52] LABS: BASO % 0.5 % (0.0-1.0); EOS # 0.6 10*3/uL (0.0-0.4); EOS % 7.6 % (1.0-4.0); HEMATOCRIT 27.2 % (37.0-47.0); HEMOGLOBIN 7.9 g/dl (12.0-16.0); IG # 0.2 10*3/uL (0.0-0.1); LYMPH # 1.3 10*3/uL (1.3-4.4); LYMPH % 15.3 % (27.0-41.0); MEAN CELL VOLUME 88.3 fl (81.0-99.0); MEAN CORPUSCULAR HGB 25.6 pg (27.0-31.0); MEAN PLATELET VOLUME 11.1 fl (9.6-12.3); MONO # 0.5 10*3/uL (0.1-1.0); MONO % 6.1 % (3.0-9.0); NEUT # 5.7 10*3/uL (2.3-7.9); NEUT % 68.7 % (47.0-73.0); PLATELET COUNT AUTOMATED 333 10*3/uL (130-400); RED BLOOD COUNT 3.08 10*6/uL (4.10-5.10); RED CELL DISTRI WIDTH 15.9 % (0-14.5); WHITE BLOOD COUNT 8.3 10*3/uL (4.8-10.8)
[2017-06-11 00:02] LABS: INTERNATIONAL NORM RATIO 1.1 (2.0-3.5); PROTHROMBIN TIME 11.2 SECONDS (9.0-12.4)
[2017-06-11 00:09] LABS: BILIRUBIN NEGATIVE (NEGATIVE); BLOOD NEGATIVE (NEGATIVE); CLARITY SL CLOUDY (CLEAR); COLOR YELLOW (YELLOW); GLUCOSE TRACE (NEGATIVE); KETONE NEGATIVE (NEGATIVE); LEUKO ESTERASE TRACE (NEGATIVE); NITRITE NEGATIVE (NEGATIVE); PH 5.5 (5.0-9.0); PROTEIN TRACE (NEGATIVE); SPECIFIC GRAVITY >= 1.030 (1.005-1.030); UROBILINOGEN 0.2 E.U./dl (0.2-1.0)
[2017-06-11 00:10] LABS: ALBUMIN 2.9 gm/dl (3.1-4.5); ALKALINE PHOSPHATASE 90 U/L (45-117); BILIRUBIN, TOTAL 0.5 mg/dl (0.2-1.0); BUN 18 mg/dl (7-24); C-REACTIVE PROTEIN 4.42 MG/DL (0-0.3); CARBON DIOXIDE 21 mmol/L (21-32); CHLORIDE 114 mmol/L (98-107); EST GLOM FILT AFRICAN AMERICAN > 60 ml/min; GLUCOSE 102 mg/dL (65-99); MAGNESIUM 1.9 mg/dL (1.5-2.1); POTASSIUM 4.2 mmol/L (3.5-5.1); SGOT/AST 14 IU/L (3-35); SGPT/ALT 14 U/L (12-78); SODIUM 145 mmol/L (136-145); TOTAL PROTEIN 7.6 gm/dL (6.4-8.2)
[2017-06-11 00:11] LABS: TROPONIN I < 0.015 ng/ml (<0.045)
[2017-06-11 00:16] LABS: CALCIUM OXALATE CRYSTALS 3+; RBC 0-2 rbc/hpf (0-2); URINE REFLEX COMMENT YES (NO); WBC TNTC wbc/hpf (0-5)
[2017-06-11 00:18] LABS: BACTERIA 2+; MUCOUS TRACE
[2017-06-11 06:12] LABS: BASO % 0.4 % (0.0-1.0); EOS # 0.6 10*3/uL (0.0-0.4); EOS % 7.6 % (1.0-4.0); HEMATOCRIT 25.5 % (37.0-47.0); HEMOGLOBIN 7.5 g/dl (12.0-16.0); IG # 0.2 10*3/uL (0.0-0.1); LYMPH # 1.2 10*3/uL (1.3-4.4); LYMPH % 15.3 % (27.0-41.0); MEAN CELL VOLUME 87.9 fl (81.0-99.0); MEAN CORPUSCULAR HGB 25.9 pg (27.0-31.0); MEAN CORPUSCULAR HGB CONC 29.4 g/dl (33.0-37.0); MEAN PLATELET VOLUME 11.1 fl (9.6-12.3); MONO # 0.6 10*3/uL (0.1-1.0); MONO % 7.7 % (3.0-9.0); NEUT # 5.3 10*3/uL (2.3-7.9); PLATELET COUNT AUTOMATED 299 10*3/uL (130-400); RED CELL DISTRI WIDTH 15.9 % (0-14.5); WHITE BLOOD COUNT 7.9 10*3/uL (4.8-10.8)
== END 2017-06-11 10:08 | disposition short-term general hospital (02) ==
LOC: ED 22:23
PROVIDERS: Student in an Organized Health Care Education/Training Program
DX: K92.2 Gastrointestinal hemorrhage, unspecified (principal); N39.0 Urinary tract infection, site not specified; Z98.890 Other specified postprocedural states; Z98.51 Tubal ligation status; Z90.49 Acquired absence of other specified parts of digestive tract; Z90.710 Acquired absence of both cervix and uterus; Z79.899 Other long term (current) drug therapy; Z79.82 Long term (current) use of aspirin; Z88.1 Allergy status to other antibiotic agents; Z88.8 Allergy status to other drugs, medicaments and biological substances

== ENCOUNTER → 2017-06-10 | Outpatient (CLI) | payer MEDICARE, OTHER | END | disposition home or self-care (01) | LOC: ORTHO 03:03 | DX: S82.401D Unspecified fracture of shaft of right fibula, subsequent encounter for closed fracture with routine healing (principal); X58.XXXD Exposure to other specified factors, subsequent encounter ==

== ENCOUNTER → 2017-06-30 | Outpatient (CLI) | payer MEDICARE, OTHER | END | disposition home or self-care (01) | LOC: ORTHO 03:00 | DX: M25.472 Effusion, left ankle (principal); S82.401G Unspecified fracture of shaft of right fibula, subsequent encounter for closed fracture with delayed healing; M77.9 Enthesopathy, unspecified; X58.XXXD Exposure to other specified factors, subsequent encounter ==

== ENCOUNTER → 2017-07-11 | Outpatient (CLI) | payer MEDICARE, OTHER ==
--- NOTE | ~2017-07-11 | PR ---
[place], [place] PROGRESS NOTE NAME: RANULFO BELLO [facility] #: [id number] UNIT #: [id number] ROOM: DOCTOR: SAPPHIRE HellerUZAIR BIRTHDATE: [birth year] DOS: 07/11/2017 CHIEF COMPLAINT: Abdominal wound. HISTORY OF PRESENT ILLNESS: This is a patient known to us in the wound clinic for an unhealed abdominal wound that was present for approximately 15 months following a complicated abdominal surgery. Her care was transferred over to Surgery early this May where she had takedown of colostomy and colovaginal fistula drained pelvic abscess. She had a new colorectal anastomosis with a diverting loop Ileostomy repair of parastomal hernia and ventral hernia at which time the abdominal wound was also managed as well. In any case, that was performed on 05/24/2017. She did have some postop bleeding around the ileostomy site and had to be transfused, but she comes in today stating that the wound has been draining large amounts of fluid for approximately the past 10 days. She has been using just a plain dry sterile bandage and it is draining quite a bit of fluid. She did call the surgeon's office and apparently has an appointment scheduled for 07/27/2017. In the meantime. She was advised to come to the Wound Clinic for evaluation of the abdominal wound. She does not have any fevers or chills. There is no change in pain. There is no spreading erythema. Her sugars are stable. She does not feel ill in any way. She states she is not taking any antibiotics. Her vital signs are stable. Temperature is 97.8, pulse of 68, respirations 18, blood pressure is 100/60. SOCIAL HISTORY: She does not smoke or drink alcohol. The wound is much smaller from the last time she was here. There is a surgical wound right in the center of the abdomen with a very deep crevice. There is actually two areas that are open. One is measuring 16 x 2.5 x 1.8 cm in depth. There is no surrounding erythema. There is no odor. There was some bleeding that appears to be bleeding quite easily, but no overt necrotic tissue was present. Distal to that is another wound; apparently she had a drain placed there that is more circular, that is measuring 4.8 x 4 x 2.1 in depth, it is clean. There is no surrounding erythema or purulence noted. No debridement was done. A culture was obtained of one of the bleeding areas near the larger abdominal wound. ASSESSMENT AND PLAN: Surgical abdominal wound. At this time, I would recommend Hydrofera Blue foam dressing for this to help absorb drainage and for bioburden control. She did respond well to this in the past. She should have the dressing changed every day. We will check a culture and have her follow up in the Wound Clinic in one week. We will also fax our report to the surgeon's office so that they are aware of the dressing that we recommended for now. She is going to follow up with her surgeon in mid-July. I did call their office to let them know that she was here in our office for evaluation. [place], [place] PROGRESS NOTE NAME: [facility] [id number] UNIT #: [id number] ROOM: DOCTOR: UZAIR LEARY M.D. BIRTHDATE: [birth year] UZAIR LEARY MD CM:RENATO [id number] UZAIR LEARY M.D. 07/12/17 0550 interface
== END | disposition home or self-care (01) ==
LOC: WOUNDCARE 11:02
DX: T81.31XD Disruption of external operation (surgical) wound, not elsewhere classified, subsequent encounter (principal); E11.628 Type 2 diabetes mellitus with other skin complications; Y83.8 Other surgical procedures as the cause of abnormal reaction of the patient, or of later complication, without mention of misadventure at the time of the procedure

== ENCOUNTER → 2017-07-20 | Outpatient (CLI) | payer MEDICARE, OTHER ==
--- NOTE | ~2017-07-20 | PR ---
[place], [place] PROGRESS NOTE NAME: RANULFO BELLO [facility] #: [id number] UNIT #: [id number] ROOM: DOCTOR: SAPPHIRE HellerUZAIR BIRTHDATE: [birth year] DOS: 07/20/2017 SUBJECTIVE: The patient comes in for a followup wound care visit. CHIEF COMPLAINT. Abdominal wound. HISTORY OF PRESENT ILLNESS: This is a 57-year-old female who was seen last week for the first time after we had transferred her care to Surgery where she underwent a surgical management of her colostomy and fistula and pelvic abscess and abdominal wound. She was left, however, still with an open wound of the abdomen and she came to us for wound care evaluation last week for the first time. In any case, we saw her last week. The wound appeared clean, although she had been complaining that had been draining large amounts of fluid the past 10 days prior to her appointment with us, so she was advised by the surgeon's office to come in for an evaluation. In any case, the wound appeared clean. There was no obvious overt acute cellulitis, but it was quite deep. A wound culture was obtained and she was recommended to try Hydrofera Blue foam to the area to help with absorption of drainage; however, she did not have any dressing sent to her. She unfortunately did not call our office to let us know about that, but did continue to use her plain gauze bandages that she had before and so she reports there was continued drainage. There has been really no change in that. There is really no change in her glucose control. No fevers or chills are noted and she does not feel ill in any way. There has been no change in pain regarding the abdominal wound and no spreading erythema. She does report, however, that there is discomfort with the gauze bandages when they dry and she changes it and pulls on the wound and it causes bleeding and it is uncomfortable. OBJECTIVE: VITAL SIGNS: Stable. Temperature is 98.1, pulse of 68, respirations 18, blood pressure is 98/60. WOUND EXAMINATION: The large abdominal wound essentially appears unchanged from the prior visit last week. It is measuring 16.5 x 2.5 x 1.8. It still looks fairly clean and there is no visible necrotic tissue and there is no overt cellulitis. The distal wound that is present still noted with margins that are slightly bigger, 5.1 x 5 x 2.1. There is no visible necrotic tissue lateral to this. There is a little small serum-filled blister, which may be pressure related. It is in between the abdominal folds. No procedures were done today. The culture that we had obtained did grow some light Staph aureus, which was sensitive to multiple antibiotics. She has multiple drug allergies. That was sensitive to quinolones and she says she tolerated quinolones in the past, so we will go ahead and start her on this due to her complaints of excessive amount of drainage, although there is no overt cellulitis clinically. Levaquin 500 p.o. daily was prescribed for 7 days. I would like her to try to Hydrofera Blue foam if it can be obtained and she can have it sent to her house. If that is not available, she can use an alginate. She does have Maxorb silver at home. This is fine to go ahead and use that, but something to help with absorption of drainage is acceptable. Also, if she does not have enough to change the dressing every day, she can always change the outer gauze dressing daily and change the inner part every other day. It is fine as well. She has a followup [place], [place] PROGRESS NOTE NAME: [facility] #: [id number] UNIT #: [id number] ROOM: DOCTOR: UZAIR LEARY M.D. BIRTHDATE: [birth year] appointment with her surgeon next week. I would like her to follow up with the surgeon, and depending on what the surgeon decides, she may either follow here for further wound care or with her surgeons. I would like their opinion regarding this. Follow up in one week if it is okay with the surgeon. Otherwise, the patient will follow up with Surgery. Also, for the small little blister noted, it looks like it was pressure related. I did advise her to just keep a gentle small 4 x 4 folded in between the skin folds to keep those areas for now. UZAIR LEARY MD CM:PNTRANS [id number] UZAIR LEARY M.D. 07/21/17 0610 interface
== END | disposition home or self-care (01) ==
LOC: WOUNDCARE 01:43
DX: T81.31XD Disruption of external operation (surgical) wound, not elsewhere classified, subsequent encounter (principal); E11.628 Type 2 diabetes mellitus with other skin complications; Y83.8 Other surgical procedures as the cause of abnormal reaction of the patient, or of later complication, without mention of misadventure at the time of the procedure

== ENCOUNTER → 2017-08-02 | Outpatient (CLI) | payer MEDICARE, OTHER | END | disposition home or self-care (01) | LOC: WOUNDCARE 02:05 | DX: T81.31XD Disruption of external operation (surgical) wound, not elsewhere classified, subsequent encounter (principal); E11.628 Type 2 diabetes mellitus with other skin complications; I25.10 Atherosclerotic heart disease of native coronary artery without angina pectoris; I25.2 Old myocardial infarction; I48.91 Unspecified atrial fibrillation; J44.9 Chronic obstructive pulmonary disease, unspecified; M19.90 Unspecified osteoarthritis, unspecified site; Z90.710 Acquired absence of both cervix and uterus; Z87.891 Personal history of nicotine dependence; Y83.8 Other surgical procedures as the cause of abnormal reaction of the patient, or of later complication, without mention of misadventure at the time of the procedure ==

== ENCOUNTER → 2017-08-16 | Outpatient (CLI) | payer MEDICARE, OTHER | END | disposition home or self-care (01) | LOC: WOUNDCARE 02:13 | DX: T81.31XD Disruption of external operation (surgical) wound, not elsewhere classified, subsequent encounter (principal); E11.628 Type 2 diabetes mellitus with other skin complications; I25.10 Atherosclerotic heart disease of native coronary artery without angina pectoris; I25.2 Old myocardial infarction; I48.91 Unspecified atrial fibrillation; M19.90 Unspecified osteoarthritis, unspecified site; J44.9 Chronic obstructive pulmonary disease, unspecified; G47.30 Sleep apnea, unspecified; Z90.710 Acquired absence of both cervix and uterus; Z87.891 Personal history of nicotine dependence ==

== ENCOUNTER → 2017-08-23 | Outpatient (CLI) | payer MEDICARE, OTHER | END | disposition home or self-care (01) | LOC: WOUNDCARE 04:59 | DX: T81.31XD Disruption of external operation (surgical) wound, not elsewhere classified, subsequent encounter (principal); E11.628 Type 2 diabetes mellitus with other skin complications; I25.10 Atherosclerotic heart disease of native coronary artery without angina pectoris; I25.2 Old myocardial infarction; I48.91 Unspecified atrial fibrillation; M19.90 Unspecified osteoarthritis, unspecified site; J44.9 Chronic obstructive pulmonary disease, unspecified; Z90.710 Acquired absence of both cervix and uterus; Z87.891 Personal history of nicotine dependence; Y83.8 Other surgical procedures as the cause of abnormal reaction of the patient, or of later complication, without mention of misadventure at the time of the procedure ==

== ENCOUNTER → 2017-08-30 | Outpatient (CLI) | payer MEDICARE, OTHER | END | disposition home or self-care (01) | LOC: WOUNDCARE 03:03 | DX: T81.89XD Other complications of procedures, not elsewhere classified, subsequent encounter (principal); I25.10 Atherosclerotic heart disease of native coronary artery without angina pectoris; I25.2 Old myocardial infarction; I48.91 Unspecified atrial fibrillation; M19.90 Unspecified osteoarthritis, unspecified site; J44.9 Chronic obstructive pulmonary disease, unspecified; G47.30 Sleep apnea, unspecified; Z90.710 Acquired absence of both cervix and uterus; Z87.891 Personal history of nicotine dependence; Y83.8 Other surgical procedures as the cause of abnormal reaction of the patient, or of later complication, without mention of misadventure at the time of the procedure ==

== ENCOUNTER → 2017-09-06 | Outpatient (CLI) | payer MEDICARE, OTHER | END | disposition home or self-care (01) | LOC: WOUNDCARE 01:31 | DX: T81.31XD Disruption of external operation (surgical) wound, not elsewhere classified, subsequent encounter (principal); E11.628 Type 2 diabetes mellitus with other skin complications; I25.10 Atherosclerotic heart disease of native coronary artery without angina pectoris; I25.2 Old myocardial infarction; I48.91 Unspecified atrial fibrillation; M19.90 Unspecified osteoarthritis, unspecified site; J44.9 Chronic obstructive pulmonary disease, unspecified; Z90.710 Acquired absence of both cervix and uterus; Z87.891 Personal history of nicotine dependence; Y83.8 Other surgical procedures as the cause of abnormal reaction of the patient, or of later complication, without mention of misadventure at the time of the procedure ==

== ENCOUNTER → 2017-09-13 | Outpatient (CLI) | payer MEDICARE, OTHER | END | disposition home or self-care (01) | LOC: WOUNDCARE 02:34 | DX: T81.31XD Disruption of external operation (surgical) wound, not elsewhere classified, subsequent encounter (principal); E11.628 Type 2 diabetes mellitus with other skin complications; Z87.891 Personal history of nicotine dependence; Z90.710 Acquired absence of both cervix and uterus; Y83.8 Other surgical procedures as the cause of abnormal reaction of the patient, or of later complication, without mention of misadventure at the time of the procedure ==

== ENCOUNTER → 2017-09-14 | Outpatient (CLI) | payer MEDICARE, OTHER ==
[2017-09-14 15:28] LABS: BILIRUBIN NEGATIVE (NEGATIVE); BLOOD NEGATIVE (NEGATIVE); CLARITY CLEAR (CLEAR); COLOR YELLOW (YELLOW); GLUCOSE NEGATIVE (NEGATIVE); KETONE NEGATIVE (NEGATIVE); LEUKO ESTERASE 1+ (NEGATIVE); NITRITE NEGATIVE (NEGATIVE); PH 5.5 (5.0-9.0); SPECIFIC GRAVITY 1.025 (1.005-1.030); UROBILINOGEN 0.2 E.U./dl (0.2-1.0)
== END ==
LOC: LAB 15:11
PROVIDERS: Internal Medicine
DX: N39.0 Urinary tract infection, site not specified (principal)

== ENCOUNTER → 2017-09-20 | Outpatient (CLI) | payer MEDICARE, OTHER | END | disposition home or self-care (01) | LOC: WOUNDCARE 01:45 | DX: T81.31XD Disruption of external operation (surgical) wound, not elsewhere classified, subsequent encounter (principal); E11.628 Type 2 diabetes mellitus with other skin complications; L92.9 Granulomatous disorder of the skin and subcutaneous tissue, unspecified; I25.10 Atherosclerotic heart disease of native coronary artery without angina pectoris; I25.2 Old myocardial infarction; I48.91 Unspecified atrial fibrillation; M19.90 Unspecified osteoarthritis, unspecified site; J44.9 Chronic obstructive pulmonary disease, unspecified; Z87.891 Personal history of nicotine dependence; Z90.710 Acquired absence of both cervix and uterus; Y83.8 Other surgical procedures as the cause of abnormal reaction of the patient, or of later complication, without mention of misadventure at the time of the procedure ==

== ENCOUNTER → 2017-09-27 | Outpatient (CLI) | payer MEDICARE, OTHER | END | disposition home or self-care (01) | LOC: WOUNDCARE 03:23 | DX: T81.89XD Other complications of procedures, not elsewhere classified, subsequent encounter (principal); L92.9 Granulomatous disorder of the skin and subcutaneous tissue, unspecified; E11.9 Type 2 diabetes mellitus without complications; I25.10 Atherosclerotic heart disease of native coronary artery without angina pectoris; I25.2 Old myocardial infarction; I48.91 Unspecified atrial fibrillation; M19.90 Unspecified osteoarthritis, unspecified site; J44.9 Chronic obstructive pulmonary disease, unspecified; G47.30 Sleep apnea, unspecified; Z90.710 Acquired absence of both cervix and uterus; Z87.891 Personal history of nicotine dependence; Y83.8 Other surgical procedures as the cause of abnormal reaction of the patient, or of later complication, without mention of misadventure at the time of the procedure ==

== ENCOUNTER → 2017-10-04 | Outpatient (CLI) | payer MEDICARE, OTHER | END | disposition home or self-care (01) | LOC: WOUNDCARE 08:20 | DX: T81.89XD Other complications of procedures, not elsewhere classified, subsequent encounter (principal); E11.628 Type 2 diabetes mellitus with other skin complications; L92.9 Granulomatous disorder of the skin and subcutaneous tissue, unspecified; I25.10 Atherosclerotic heart disease of native coronary artery without angina pectoris; I25.2 Old myocardial infarction; I48.91 Unspecified atrial fibrillation; M19.90 Unspecified osteoarthritis, unspecified site; J44.9 Chronic obstructive pulmonary disease, unspecified; G47.30 Sleep apnea, unspecified; Z90.710 Acquired absence of both cervix and uterus; Z87.891 Personal history of nicotine dependence; Y83.8 Other surgical procedures as the cause of abnormal reaction of the patient, or of later complication, without mention of misadventure at the time of the procedure ==

== ENCOUNTER → 2017-10-13 | Outpatient (CLI) | payer MEDICARE, OTHER | END | disposition home or self-care (01) | LOC: WOUNDCARE 01:53 | DX: T81.31XD Disruption of external operation (surgical) wound, not elsewhere classified, subsequent encounter (principal); E11.628 Type 2 diabetes mellitus with other skin complications; L92.9 Granulomatous disorder of the skin and subcutaneous tissue, unspecified; I25.10 Atherosclerotic heart disease of native coronary artery without angina pectoris; I25.2 Old myocardial infarction; I48.91 Unspecified atrial fibrillation; M19.90 Unspecified osteoarthritis, unspecified site; J44.9 Chronic obstructive pulmonary disease, unspecified; G47.30 Sleep apnea, unspecified; Z90.710 Acquired absence of both cervix and uterus; Z87.891 Personal history of nicotine dependence; X58.XXXD Exposure to other specified factors, subsequent encounter ==

== ENCOUNTER → 2017-10-18 | Outpatient (CLI) | payer MEDICARE, OTHER | LOC: WOUNDCARE 04:02 | DX: T81.31XD Disruption of external operation (surgical) wound, not elsewhere classified, subsequent encounter (principal); E11.628 Type 2 diabetes mellitus with other skin complications; L92.9 Granulomatous disorder of the skin and subcutaneous tissue, unspecified; I25.10 Atherosclerotic heart disease of native coronary artery without angina pectoris; I25.2 Old myocardial infarction; I48.91 Unspecified atrial fibrillation; M19.90 Unspecified osteoarthritis, unspecified site; J44.9 Chronic obstructive pulmonary disease, unspecified; G47.30 Sleep apnea, unspecified; Z87.891 Personal history of nicotine dependence; Z90.710 Acquired absence of both cervix and uterus; Y83.8 Other surgical procedures as the cause of abnormal reaction of the patient, or of later complication, without mention of misadventure at the time of the procedure ==

== ENCOUNTER 2017-10-25 17:19 | Emergency (ER) | payer MEDICARE, OTHER ==
[~2017-10-25] VITALS: Wt 86.2 kg
== END 2017-10-25 19:41 | disposition home or self-care (01) ==
LOC: ED 17:19
DX: S60.212A Contusion of left wrist, initial encounter (principal); Z88.1 Allergy status to other antibiotic agents; Z88.2 Allergy status to sulfonamides; Z88.8 Allergy status to other drugs, medicaments and biological substances; Z79.899 Other long term (current) drug therapy; Z79.84 Long term (current) use of oral hypoglycemic drugs; Z79.82 Long term (current) use of aspirin; Z90.49 Acquired absence of other specified parts of digestive tract; Z90.710 Acquired absence of both cervix and uterus; Z98.51 Tubal ligation status; W18.39XA Other fall on same level, initial encounter; Y93.89 Activity, other specified; Y92.89 Other specified places as the place of occurrence of the external cause; Y99.8 Other external cause status

== ENCOUNTER → 2017-11-01 | Outpatient (CLI) | payer MEDICARE, OTHER | END | disposition home or self-care (01) | LOC: WOUNDCARE 12:54 | DX: T81.31XD Disruption of external operation (surgical) wound, not elsewhere classified, subsequent encounter (principal); E11.628 Type 2 diabetes mellitus with other skin complications; L92.9 Granulomatous disorder of the skin and subcutaneous tissue, unspecified; I25.10 Atherosclerotic heart disease of native coronary artery without angina pectoris; I25.2 Old myocardial infarction; I48.91 Unspecified atrial fibrillation; M19.90 Unspecified osteoarthritis, unspecified site; J44.9 Chronic obstructive pulmonary disease, unspecified; G47.30 Sleep apnea, unspecified; Z90.710 Acquired absence of both cervix and uterus; Z87.891 Personal history of nicotine dependence; Y83.8 Other surgical procedures as the cause of abnormal reaction of the patient, or of later complication, without mention of misadventure at the time of the procedure ==

== ENCOUNTER 2017-11-26 16:16 | Emergency (ER) | payer MEDICARE, OTHER ==
[~2017-11-26] VITALS: Wt 86.6 kg
[2017-11-26 16:57] LABS: BASO % 0.6 % (0.0-1.0); EOS # 0.5 10*3/uL (0.0-0.4); EOS % 7.3 % (1.0-4.0); HEMATOCRIT 37.7 % (37.0-47.0); HEMOGLOBIN 11.8 g/dl (12.0-16.0); LYMPH # 1.3 10*3/uL (1.3-4.4); LYMPH % 19.7 % (27.0-41.0); MEAN CELL VOLUME 93.3 fl (81.0-99.0); MEAN CORPUSCULAR HGB 29.2 pg (27.0-31.0); MEAN CORPUSCULAR HGB CONC 31.3 g/dl (33.0-37.0); MEAN PLATELET VOLUME 11.7 fl (9.6-12.3); MONO # 0.5 10*3/uL (0.1-1.0); MONO % 7.4 % (3.0-9.0); NEUT # 4.2 10*3/uL (2.3-7.9); NEUT % 64.4 % (47.0-73.0); PLATELET COUNT AUTOMATED 164 10*3/uL (130-400); RED BLOOD COUNT 4.04 10*6/uL (4.10-5.10); RED CELL DISTRI WIDTH 14.9 % (0-14.5); WHITE BLOOD COUNT 6.5 10*3/uL (4.8-10.8)
[2017-11-26 17:06] LABS: ACT PARTIAL THROMBO TIME 26.7 SECONDS (20.8-31.5); INTERNATIONAL NORM RATIO 1.1 (2.0-3.5)
[2017-11-26 17:13] LABS: ALBUMIN 3.8 gm/dl (3.1-4.5); CREATININE 1.18 mg/dL (0.55-1.02); POTASSIUM 4.3 mmol/L (3.5-5.1); TOTAL PROTEIN 7.2 gm/dL (6.4-8.2)
== END 2017-11-26 17:36 | disposition home or self-care (01) ==
LOC: ED 16:16
PROVIDERS: Nurse Practitioner Family
DX: K94.01 Colostomy hemorrhage (principal); Z88.1 Allergy status to other antibiotic agents; Z79.82 Long term (current) use of aspirin; Z79.899 Other long term (current) drug therapy

== ENCOUNTER → 2017-11-29 | Outpatient (CLI) | payer MEDICARE, OTHER | LOC: WOUNDCARE 01:38 | DX: T81.31XD Disruption of external operation (surgical) wound, not elsewhere classified, subsequent encounter (principal); E11.628 Type 2 diabetes mellitus with other skin complications; L92.9 Granulomatous disorder of the skin and subcutaneous tissue, unspecified; I25.2 Old myocardial infarction; I48.91 Unspecified atrial fibrillation; M19.90 Unspecified osteoarthritis, unspecified site; J44.9 Chronic obstructive pulmonary disease, unspecified; G47.30 Sleep apnea, unspecified; I25.10 Atherosclerotic heart disease of native coronary artery without angina pectoris; Z90.710 Acquired absence of both cervix and uterus; Z87.891 Personal history of nicotine dependence; Y83.8 Other surgical procedures as the cause of abnormal reaction of the patient, or of later complication, without mention of misadventure at the time of the procedure ==

== ENCOUNTER → 2017-12-06 | Outpatient (CLI) | payer MEDICARE, OTHER | END | disposition home or self-care (01) | LOC: WOUNDCARE 03:59 | DX: T81.31XD Disruption of external operation (surgical) wound, not elsewhere classified, subsequent encounter (principal); E11.628 Type 2 diabetes mellitus with other skin complications; L92.9 Granulomatous disorder of the skin and subcutaneous tissue, unspecified; I25.10 Atherosclerotic heart disease of native coronary artery without angina pectoris; I25.2 Old myocardial infarction; I48.91 Unspecified atrial fibrillation; M19.90 Unspecified osteoarthritis, unspecified site; J44.9 Chronic obstructive pulmonary disease, unspecified; G47.30 Sleep apnea, unspecified; Z90.710 Acquired absence of both cervix and uterus; Z87.891 Personal history of nicotine dependence; Y83.8 Other surgical procedures as the cause of abnormal reaction of the patient, or of later complication, without mention of misadventure at the time of the procedure ==

== ENCOUNTER → 2017-12-15 | Outpatient (CLI) | payer MEDICARE, OTHER | END | disposition home or self-care (01) | LOC: WOUNDCARE 12-13 04:08 | DX: T81.31XD Disruption of external operation (surgical) wound, not elsewhere classified, subsequent encounter (principal); E11.628 Type 2 diabetes mellitus with other skin complications; I25.10 Atherosclerotic heart disease of native coronary artery without angina pectoris; L92.9 Granulomatous disorder of the skin and subcutaneous tissue, unspecified; I25.2 Old myocardial infarction; I48.91 Unspecified atrial fibrillation; M19.90 Unspecified osteoarthritis, unspecified site; J44.9 Chronic obstructive pulmonary disease, unspecified; G47.30 Sleep apnea, unspecified; Z90.710 Acquired absence of both cervix and uterus; Z87.891 Personal history of nicotine dependence; Y83.8 Other surgical procedures as the cause of abnormal reaction of the patient, or of later complication, without mention of misadventure at the time of the procedure ==

== ENCOUNTER 2017-12-22 11:20 | Emergency (ER) | payer MEDICARE, OTHER ==
[~2017-12-22] VITALS: Ht 152.4 cm; Wt 85.3 kg
[2017-12-22] MEDS ORDERED: DIFLUCAN150 MG PO (14:45)
[2017-12-22] MEDS ORDERED: VIBRAMYCIN100 MG PO (14:45)
== END 2017-12-22 14:49 | disposition home or self-care (01) ==
LOC: ED 11:20
DX: J40 Bronchitis, not specified as acute or chronic (principal); Z43.2 Encounter for attention to ileostomy; Z98.890 Other specified postprocedural states; Z90.710 Acquired absence of both cervix and uterus; Z90.49 Acquired absence of other specified parts of digestive tract; Z79.899 Other long term (current) drug therapy; Z79.82 Long term (current) use of aspirin; Z88.1 Allergy status to other antibiotic agents; Z88.8 Allergy status to other drugs, medicaments and biological substances

== ENCOUNTER 2017-12-23 10:43 | Emergency (ER) | payer MEDICARE, OTHER ==
[~2017-12-23] VITALS: Ht 152.4 cm; Wt 85.3 kg
[~2017-12-23 10:43] MED LIST changes: +DIFLUCAN150 MG PO
[2017-12-23 11:29] LABS: BASO % 0.5 % (0.0-1.0); HEMATOCRIT 34.1 % (37.0-47.0); HEMOGLOBIN 10.8 g/dl (12.0-16.0); LYMPH # 1.2 10*3/uL (1.3-4.4); LYMPH % 14.4 % (27.0-41.0); MEAN CELL VOLUME 93.9 fl (81.0-99.0); MEAN CORPUSCULAR HGB 29.8 pg (27.0-31.0); MEAN CORPUSCULAR HGB CONC 31.7 g/dl (33.0-37.0); MEAN PLATELET VOLUME 11.8 fl (9.6-12.3); MONO # 0.5 10*3/uL (0.1-1.0); MONO % 6.5 % (3.0-9.0); NEUT # 5.3 10*3/uL (2.3-7.9); PLATELET COUNT AUTOMATED 174 10*3/uL (130-400); RED BLOOD COUNT 3.63 10*6/uL (4.10-5.10); RED CELL DISTRI WIDTH 15.1 % (0-14.5); WHITE BLOOD COUNT 8.2 10*3/uL (4.8-10.8)
[2017-12-23 11:38] LABS: ACT PARTIAL THROMBO TIME 27.6 SECONDS (20.8-31.5)
[2017-12-23 11:43] LABS: ALBUMIN 3.3 gm/dl (3.1-4.5); ALKALINE PHOSPHATASE 88 U/L (45-117); BUN 19 mg/dl (7-24); CHLORIDE 114 mmol/L (98-107); POTASSIUM 4.7 mmol/L (3.5-5.1); SGOT/AST 18 IU/L (3-35); SGPT/ALT 26 U/L (12-78); SODIUM 145 mmol/L (136-145); TOTAL PROTEIN 6.9 gm/dL (6.4-8.2)
== END 2017-12-23 12:18 | disposition home or self-care (01) ==
LOC: ED 10:43
PROVIDERS: Nurse Practitioner Family
DX: L98.498 Non-pressure chronic ulcer of skin of other sites with other specified severity (principal); Z93.3 Colostomy status; Z98.890 Other specified postprocedural states; Z98.51 Tubal ligation status; Z90.710 Acquired absence of both cervix and uterus; Z79.899 Other long term (current) drug therapy; Z79.82 Long term (current) use of aspirin; Z88.1 Allergy status to other antibiotic agents; Z88.8 Allergy status to other drugs, medicaments and biological substances

== ENCOUNTER 2017-12-24 02:32 | Emergency (ER) | payer MEDICARE, OTHER ==
[~2017-12-24] VITALS: Ht 152.4 cm; Wt 85.3 kg
[2017-12-24 02:57] LABS: BASO # 0.1 10*3/uL (0.0-0.1); BASO % 0.9 % (0.0-1.0); EOS # 0.8 10*3/uL (0.0-0.4); EOS % 13.2 % (1.0-4.0); HEMATOCRIT 32.1 % (37.0-47.0); HEMOGLOBIN 10.3 g/dl (12.0-16.0); LYMPH # 1.2 10*3/uL (1.3-4.4); LYMPH % 21.4 % (27.0-41.0); MEAN CELL VOLUME 93.9 fl (81.0-99.0); MEAN CORPUSCULAR HGB 30.1 pg (27.0-31.0); MEAN CORPUSCULAR HGB CONC 32.1 g/dl (33.0-37.0); MEAN PLATELET VOLUME 11.9 fl (9.6-12.3); MONO # 0.5 10*3/uL (0.1-1.0); MONO % 8.2 % (3.0-9.0); NEUT # 3.1 10*3/uL (2.3-7.9); NEUT % 54.4 % (47.0-73.0); PLATELET COUNT AUTOMATED 157 10*3/uL (130-400); RED BLOOD COUNT 3.42 10*6/uL (4.10-5.10); WHITE BLOOD COUNT 5.8 10*3/uL (4.8-10.8)
[2017-12-24 03:09] LABS: ACT PARTIAL THROMBO TIME 28.3 SECONDS (20.8-31.5)
[2017-12-24 03:23] LABS: BUN 15 mg/dl (7-24); CHLORIDE 115 mmol/L (98-107); CREATININE 0.93 mg/dL (0.55-1.02); POTASSIUM 4.2 mmol/L (3.5-5.1); SODIUM 147 mmol/L (136-145)
== END 2017-12-24 08:01 | disposition short-term general hospital (02) ==
LOC: ED 02:32
PROVIDERS: Emergency Medicine Emergency Medical Services
DX: K94.01 Colostomy hemorrhage (principal); Z98.890 Other specified postprocedural states; Z98.51 Tubal ligation status; Z90.710 Acquired absence of both cervix and uterus; Z90.49 Acquired absence of other specified parts of digestive tract; Z79.82 Long term (current) use of aspirin; Z79.899 Other long term (current) drug therapy; Z88.1 Allergy status to other antibiotic agents; Z88.8 Allergy status to other drugs, medicaments and biological substances

== ENCOUNTER → 2017-12-27 | Outpatient (CLI) | payer MEDICARE, OTHER | END | disposition home or self-care (01) | LOC: WOUNDCARE 03:25 | DX: T81.31XD Disruption of external operation (surgical) wound, not elsewhere classified, subsequent encounter (principal); E11.628 Type 2 diabetes mellitus with other skin complications; L92.9 Granulomatous disorder of the skin and subcutaneous tissue, unspecified; I25.10 Atherosclerotic heart disease of native coronary artery without angina pectoris; I25.2 Old myocardial infarction; I48.91 Unspecified atrial fibrillation; M19.90 Unspecified osteoarthritis, unspecified site; J44.9 Chronic obstructive pulmonary disease, unspecified; G47.30 Sleep apnea, unspecified; Z90.710 Acquired absence of both cervix and uterus; Z87.891 Personal history of nicotine dependence; Y83.8 Other surgical procedures as the cause of abnormal reaction of the patient, or of later complication, without mention of misadventure at the time of the procedure ==

== ENCOUNTER → 2018-01-17 | Outpatient (CLI) | payer MEDICARE, OTHER | END | disposition home or self-care (01) | LOC: WOUNDCARE 01:36 | DX: T81.31XD Disruption of external operation (surgical) wound, not elsewhere classified, subsequent encounter (principal); E11.628 Type 2 diabetes mellitus with other skin complications; L92.9 Granulomatous disorder of the skin and subcutaneous tissue, unspecified; I25.10 Atherosclerotic heart disease of native coronary artery without angina pectoris; I25.2 Old myocardial infarction; I48.91 Unspecified atrial fibrillation; M19.90 Unspecified osteoarthritis, unspecified site; J44.9 Chronic obstructive pulmonary disease, unspecified; G47.30 Sleep apnea, unspecified; Z87.891 Personal history of nicotine dependence; Z90.710 Acquired absence of both cervix and uterus; Y83.8 Other surgical procedures as the cause of abnormal reaction of the patient, or of later complication, without mention of misadventure at the time of the procedure ==

== ENCOUNTER → 2018-01-31 | Outpatient (CLI) | payer MEDICARE, OTHER | END | disposition home or self-care (01) | LOC: WOUNDCARE 04:15 | DX: T81.31XA Disruption of external operation (surgical) wound, not elsewhere classified, initial encounter (principal); E11.628 Type 2 diabetes mellitus with other skin complications; L92.9 Granulomatous disorder of the skin and subcutaneous tissue, unspecified; I25.10 Atherosclerotic heart disease of native coronary artery without angina pectoris; I25.2 Old myocardial infarction; I48.91 Unspecified atrial fibrillation; M19.90 Unspecified osteoarthritis, unspecified site; J44.9 Chronic obstructive pulmonary disease, unspecified; G47.30 Sleep apnea, unspecified; Z90.710 Acquired absence of both cervix and uterus; Z87.891 Personal history of nicotine dependence; Y83.8 Other surgical procedures as the cause of abnormal reaction of the patient, or of later complication, without mention of misadventure at the time of the procedure ==

== ENCOUNTER → 2018-02-09 | Outpatient (CLI) | payer MEDICARE, OTHER | END | disposition home or self-care (01) | LOC: WOUNDCARE 02:14 | DX: T81.31XD Disruption of external operation (surgical) wound, not elsewhere classified, subsequent encounter (principal); E11.628 Type 2 diabetes mellitus with other skin complications; L92.9 Granulomatous disorder of the skin and subcutaneous tissue, unspecified; I25.10 Atherosclerotic heart disease of native coronary artery without angina pectoris; I25.2 Old myocardial infarction; I48.91 Unspecified atrial fibrillation; M19.90 Unspecified osteoarthritis, unspecified site; J44.9 Chronic obstructive pulmonary disease, unspecified; G47.30 Sleep apnea, unspecified; Z90.710 Acquired absence of both cervix and uterus; Z87.891 Personal history of nicotine dependence; Y83.8 Other surgical procedures as the cause of abnormal reaction of the patient, or of later complication, without mention of misadventure at the time of the procedure ==

== ENCOUNTER → 2018-02-16 | Outpatient (CLI) | payer MEDICARE, OTHER | END | disposition home or self-care (01) | LOC: WOUNDCARE 01:27 | DX: T81.31XD Disruption of external operation (surgical) wound, not elsewhere classified, subsequent encounter (principal); E11.9 Type 2 diabetes mellitus without complications; G47.30 Sleep apnea, unspecified; I25.10 Atherosclerotic heart disease of native coronary artery without angina pectoris; I25.2 Old myocardial infarction; I48.91 Unspecified atrial fibrillation; J44.9 Chronic obstructive pulmonary disease, unspecified; M19.90 Unspecified osteoarthritis, unspecified site; Z87.891 Personal history of nicotine dependence; Z90.710 Acquired absence of both cervix and uterus; Y83.8 Other surgical procedures as the cause of abnormal reaction of the patient, or of later complication, without mention of misadventure at the time of the procedure ==

== ENCOUNTER → 2018-02-23 | Outpatient (CLI) | payer MEDICARE, OTHER | END | disposition home or self-care (01) | LOC: WOUNDCARE 01:40 | DX: T81.31XD Disruption of external operation (surgical) wound, not elsewhere classified, subsequent encounter (principal); E11.628 Type 2 diabetes mellitus with other skin complications; I25.10 Atherosclerotic heart disease of native coronary artery without angina pectoris; I25.2 Old myocardial infarction; I48.91 Unspecified atrial fibrillation; G47.30 Sleep apnea, unspecified; J44.9 Chronic obstructive pulmonary disease, unspecified; M19.90 Unspecified osteoarthritis, unspecified site; Z90.710 Acquired absence of both cervix and uterus; Z87.891 Personal history of nicotine dependence; Y83.8 Other surgical procedures as the cause of abnormal reaction of the patient, or of later complication, without mention of misadventure at the time of the procedure ==

== ENCOUNTER → 2018-02-28 | Outpatient (CLI) | payer MEDICARE, OTHER | END | disposition home or self-care (01) | LOC: WOUNDCARE 08:19 | DX: T81.89XD Other complications of procedures, not elsewhere classified, subsequent encounter (principal); E11.628 Type 2 diabetes mellitus with other skin complications; L92.9 Granulomatous disorder of the skin and subcutaneous tissue, unspecified; I25.10 Atherosclerotic heart disease of native coronary artery without angina pectoris; I25.2 Old myocardial infarction; I48.91 Unspecified atrial fibrillation; M19.90 Unspecified osteoarthritis, unspecified site; J44.9 Chronic obstructive pulmonary disease, unspecified; G47.30 Sleep apnea, unspecified; Z87.891 Personal history of nicotine dependence; Z90.710 Acquired absence of both cervix and uterus; Y83.8 Other surgical procedures as the cause of abnormal reaction of the patient, or of later complication, without mention of misadventure at the time of the procedure ==

== ENCOUNTER → 2018-03-14 | Outpatient (CLI) | payer MEDICARE, OTHER | END | disposition home or self-care (01) | LOC: WOUNDCARE 01:00 | DX: T81.89XD Other complications of procedures, not elsewhere classified, subsequent encounter (principal); I25.10 Atherosclerotic heart disease of native coronary artery without angina pectoris; I25.2 Old myocardial infarction; I48.91 Unspecified atrial fibrillation; M19.90 Unspecified osteoarthritis, unspecified site; J44.9 Chronic obstructive pulmonary disease, unspecified; G47.30 Sleep apnea, unspecified; Z90.710 Acquired absence of both cervix and uterus; Z87.891 Personal history of nicotine dependence; Y83.8 Other surgical procedures as the cause of abnormal reaction of the patient, or of later complication, without mention of misadventure at the time of the procedure ==

== ENCOUNTER → 2018-03-21 | Outpatient (CLI) | payer MEDICARE, OTHER | END | disposition home or self-care (01) | LOC: WOUNDCARE 02:40 | DX: T81.31XD Disruption of external operation (surgical) wound, not elsewhere classified, subsequent encounter (principal); E11.628 Type 2 diabetes mellitus with other skin complications; L92.8 Other granulomatous disorders of the skin and subcutaneous tissue; I25.10 Atherosclerotic heart disease of native coronary artery without angina pectoris; I25.2 Old myocardial infarction; I48.91 Unspecified atrial fibrillation; M19.90 Unspecified osteoarthritis, unspecified site; J44.9 Chronic obstructive pulmonary disease, unspecified; G47.30 Sleep apnea, unspecified; Z87.891 Personal history of nicotine dependence; Y83.8 Other surgical procedures as the cause of abnormal reaction of the patient, or of later complication, without mention of misadventure at the time of the procedure ==

== ENCOUNTER → 2018-03-28 | Outpatient (CLI) | payer MEDICARE, OTHER | END | disposition home or self-care (01) | LOC: WOUNDCARE 02:09 | DX: T81.31XD Disruption of external operation (surgical) wound, not elsewhere classified, subsequent encounter (principal); G47.30 Sleep apnea, unspecified; I25.10 Atherosclerotic heart disease of native coronary artery without angina pectoris; I25.2 Old myocardial infarction; I48.91 Unspecified atrial fibrillation; J44.9 Chronic obstructive pulmonary disease, unspecified; M19.90 Unspecified osteoarthritis, unspecified site; Z90.710 Acquired absence of both cervix and uterus; Z87.891 Personal history of nicotine dependence; Y83.8 Other surgical procedures as the cause of abnormal reaction of the patient, or of later complication, without mention of misadventure at the time of the procedure ==

== ENCOUNTER 2018-03-29 14:04 | Emergency (ER) | payer MEDICARE, OTHER ==
[~2018-03-29] VITALS: Ht 152.4 cm; Wt 81.6 kg
== END 2018-03-29 15:05 | disposition home or self-care (01) ==
LOC: ED 14:04
DX: L76.22 Postprocedural hemorrhage of skin and subcutaneous tissue following other procedure (principal); Z98.890 Other specified postprocedural states; Z98.51 Tubal ligation status; Z90.710 Acquired absence of both cervix and uterus; Z90.49 Acquired absence of other specified parts of digestive tract; Z79.899 Other long term (current) drug therapy; Z88.1 Allergy status to other antibiotic agents; Z88.8 Allergy status to other drugs, medicaments and biological substances; Z93.3 Colostomy status

== ENCOUNTER → 2018-04-04 | Outpatient (CLI) | payer MEDICARE, OTHER | END | disposition home or self-care (01) | LOC: WOUNDCARE 01:26 | DX: T81.31XD Disruption of external operation (surgical) wound, not elsewhere classified, subsequent encounter (principal); E11.628 Type 2 diabetes mellitus with other skin complications; L92.9 Granulomatous disorder of the skin and subcutaneous tissue, unspecified; G47.30 Sleep apnea, unspecified; I25.10 Atherosclerotic heart disease of native coronary artery without angina pectoris; I25.2 Old myocardial infarction; I48.91 Unspecified atrial fibrillation; J44.9 Chronic obstructive pulmonary disease, unspecified; M19.90 Unspecified osteoarthritis, unspecified site; Z90.710 Acquired absence of both cervix and uterus; Z87.891 Personal history of nicotine dependence; Y83.8 Other surgical procedures as the cause of abnormal reaction of the patient, or of later complication, without mention of misadventure at the time of the procedure ==

== ENCOUNTER → 2018-04-11 | Outpatient (CLI) | payer MEDICARE, OTHER ==
[~2018-04-11] MED LIST changes: +BREO ELLIPTA 11 EACH INH; +ECOTRIN325 M1 PO; +FEOSOL325 MG PO; -FERROUS SULFAT325 M1 PO; +INCRUSE ELLI62.5 MCG INH; +NITRO-DUR1 EAC1 TD; +PLAVIX75 M1 PO; +PROAIR HFA8.5 GM INH
== END | disposition home or self-care (01) ==
LOC: WOUNDCARE 04:35
DX: T81.31XD Disruption of external operation (surgical) wound, not elsewhere classified, subsequent encounter (principal); E11.628 Type 2 diabetes mellitus with other skin complications; G47.30 Sleep apnea, unspecified; I25.10 Atherosclerotic heart disease of native coronary artery without angina pectoris; I25.2 Old myocardial infarction; I48.91 Unspecified atrial fibrillation; J44.9 Chronic obstructive pulmonary disease, unspecified; M19.90 Unspecified osteoarthritis, unspecified site; Z87.891 Personal history of nicotine dependence; Z90.710 Acquired absence of both cervix and uterus; Y83.8 Other surgical procedures as the cause of abnormal reaction of the patient, or of later complication, without mention of misadventure at the time of the procedure

== ENCOUNTER → 2018-04-18 | Outpatient (CLI) | payer MEDICARE, OTHER | END | disposition home or self-care (01) | LOC: WOUNDCARE 04:37 | DX: T81.31XD Disruption of external operation (surgical) wound, not elsewhere classified, subsequent encounter (principal); E11.628 Type 2 diabetes mellitus with other skin complications; L92.9 Granulomatous disorder of the skin and subcutaneous tissue, unspecified; I25.10 Atherosclerotic heart disease of native coronary artery without angina pectoris; I25.2 Old myocardial infarction; I48.91 Unspecified atrial fibrillation; M19.90 Unspecified osteoarthritis, unspecified site; J44.9 Chronic obstructive pulmonary disease, unspecified; G47.30 Sleep apnea, unspecified; Z90.710 Acquired absence of both cervix and uterus; Z93.3 Colostomy status; Z87.891 Personal history of nicotine dependence; Y83.8 Other surgical procedures as the cause of abnormal reaction of the patient, or of later complication, without mention of misadventure at the time of the procedure ==

== ENCOUNTER → 2018-04-25 | Outpatient (CLI) | payer MEDICARE, OTHER | END | disposition home or self-care (01) | LOC: WOUNDCARE 00:28 | DX: T81.31XD Disruption of external operation (surgical) wound, not elsewhere classified, subsequent encounter (principal); E11.628 Type 2 diabetes mellitus with other skin complications; L92.9 Granulomatous disorder of the skin and subcutaneous tissue, unspecified; I25.10 Atherosclerotic heart disease of native coronary artery without angina pectoris; I25.2 Old myocardial infarction; I48.91 Unspecified atrial fibrillation; M19.90 Unspecified osteoarthritis, unspecified site; J44.9 Chronic obstructive pulmonary disease, unspecified; G47.30 Sleep apnea, unspecified; Z90.710 Acquired absence of both cervix and uterus; Z93.3 Colostomy status; Z87.891 Personal history of nicotine dependence; Y83.8 Other surgical procedures as the cause of abnormal reaction of the patient, or of later complication, without mention of misadventure at the time of the procedure ==

== ENCOUNTER → 2018-04-26 | Outpatient (CLI) | payer MEDICARE, OTHER ==
[2018-04-26 10:49] LABS: CREATININE 0.86 mg/dL (0.55-1.02)
== END | disposition home or self-care (01) ==
LOC: LAB 00:16 → CT 00:16
PROVIDERS: Radiology Diagnostic Radiology
DX: K43.9 Ventral hernia without obstruction or gangrene (principal); T81.31XD Disruption of external operation (surgical) wound, not elsewhere classified, subsequent encounter; Z93.2 Ileostomy status

== ENCOUNTER → 2018-05-02 | Outpatient (CLI) | payer MEDICARE, OTHER | END | disposition home or self-care (01) | LOC: WOUNDCARE 04:43 | DX: T81.89XD Other complications of procedures, not elsewhere classified, subsequent encounter (principal); I25.10 Atherosclerotic heart disease of native coronary artery without angina pectoris; I25.2 Old myocardial infarction; I48.91 Unspecified atrial fibrillation; M19.90 Unspecified osteoarthritis, unspecified site; J44.9 Chronic obstructive pulmonary disease, unspecified; G47.30 Sleep apnea, unspecified; Z93.3 Colostomy status; Z87.891 Personal history of nicotine dependence; Y83.8 Other surgical procedures as the cause of abnormal reaction of the patient, or of later complication, without mention of misadventure at the time of the procedure ==

== ENCOUNTER 2018-05-08 12:49 | Emergency (ER) | payer MEDICARE, OTHER ==
[~2018-05-08] VITALS: Ht 152.4 cm; Wt 81.6 kg
[~2018-05-08 12:49] MED LIST changes: -BREO ELLIPTA 11 EACH INH; -ECOTRIN325 M1 PO; -INCRUSE ELLI62.5 MCG INH; -NITRO-DUR1 EAC1 TD; -PLAVIX75 M1 PO; -PROAIR HFA8.5 GM INH
[2018-05-08] MEDS ORDERED: VIBRAMYCIN100 MG PO (14:07)
[2018-05-18] MEDS ORDERED: NITRO-DUR1 EAC1 TD (12:57)
[2018-05-18] MEDS ORDERED: PLAVIX75 M1 PO (12:59)
[2018-05-18] MEDS ORDERED: ECOTRIN325 M1 PO (12:59)
[2018-05-18] MEDS ORDERED: PROAIR HFA8.5 GM INH (13:13)
[2018-05-18] MEDS ORDERED: BREO ELLIPTA 11 EACH INH (13:14)
[2018-05-18] MEDS ORDERED: INCRUSE ELLI62.5 MCG INH (13:15)
== END 2018-05-08 14:26 | disposition home or self-care (01) ==
LOC: ED 12:49
DX: Z48.01 Encounter for change or removal of surgical wound dressing (principal); Z98.890 Other specified postprocedural states; Z98.51 Tubal ligation status; Z90.710 Acquired absence of both cervix and uterus; Z90.49 Acquired absence of other specified parts of digestive tract; Z79.899 Other long term (current) drug therapy; Z88.1 Allergy status to other antibiotic agents; Z88.8 Allergy status to other drugs, medicaments and biological substances

== ENCOUNTER → 2018-05-22 | Day surgery (SDC) | payer MEDICARE, OTHER ==
[~2018-05-22] VITALS: Ht 152.4 cm; Wt 83.0 kg
[2018-05-22] VITALS (7 sets, daily range): BP systolic 97–124; BP diastolic 61–75
[~2018-05-22] MED LIST changes: +BREO ELLIPTA 11 EACH INH; +ECOTRIN325 M1 PO; +INCRUSE ELLI62.5 MCG INH; +NITRO-DUR1 EAC1 TD; +PLAVIX75 M1 PO; +PROAIR HFA8.5 GM INH
== END | disposition home or self-care (01) ==
LOC: SDC 05-18 12:30
DX: K43.2 Incisional hernia without obstruction or gangrene (principal); K94.19 Other complications of enterostomy; I10 Essential (primary) hypertension; I25.10 Atherosclerotic heart disease of native coronary artery without angina pectoris; E78.00 Pure hypercholesterolemia, unspecified; E11.40 Type 2 diabetes mellitus with diabetic neuropathy, unspecified; I25.2 Old myocardial infarction; K21.9 Gastro-esophageal reflux disease without esophagitis; M79.7 Fibromyalgia; J44.9 Chronic obstructive pulmonary disease, unspecified; F41.8 Other specified anxiety disorders; Z87.891 Personal history of nicotine dependence; Z88.1 Allergy status to other antibiotic agents; Z88.2 Allergy status to sulfonamides; Z79.82 Long term (current) use of aspirin; Z79.84 Long term (current) use of oral hypoglycemic drugs; Z79.899 Other long term (current) drug therapy; Z90.710 Acquired absence of both cervix and uterus; Z90.49 Acquired absence of other specified parts of digestive tract; Z98.890 Other specified postprocedural states; Z83.3 Family history of diabetes mellitus; Z82.49 Family history of ischemic heart disease and other diseases of the circulatory system

== ENCOUNTER → 2018-05-25 | Outpatient (CLI) | payer MEDICARE, OTHER | END | disposition home or self-care (01) | LOC: WOUNDCARE 01:49 | DX: T81.89XD Other complications of procedures, not elsewhere classified, subsequent encounter (principal); E11.628 Type 2 diabetes mellitus with other skin complications; L92.9 Granulomatous disorder of the skin and subcutaneous tissue, unspecified; G47.30 Sleep apnea, unspecified; I25.10 Atherosclerotic heart disease of native coronary artery without angina pectoris; I25.2 Old myocardial infarction; I48.91 Unspecified atrial fibrillation; J44.9 Chronic obstructive pulmonary disease, unspecified; M19.90 Unspecified osteoarthritis, unspecified site; Z87.891 Personal history of nicotine dependence; Z90.710 Acquired absence of both cervix and uterus; Y83.8 Other surgical procedures as the cause of abnormal reaction of the patient, or of later complication, without mention of misadventure at the time of the procedure ==

== ENCOUNTER → 2018-06-01 | Outpatient (CLI) | payer MEDICARE, OTHER | END | disposition home or self-care (01) | LOC: WOUNDCARE 04:05 | DX: T81.31XD Disruption of external operation (surgical) wound, not elsewhere classified, subsequent encounter (principal); E11.628 Type 2 diabetes mellitus with other skin complications; G47.30 Sleep apnea, unspecified; I25.10 Atherosclerotic heart disease of native coronary artery without angina pectoris; I25.2 Old myocardial infarction; I48.91 Unspecified atrial fibrillation; J44.9 Chronic obstructive pulmonary disease, unspecified; M19.90 Unspecified osteoarthritis, unspecified site; Y83.8 Other surgical procedures as the cause of abnormal reaction of the patient, or of later complication, without mention of misadventure at the time of the procedure ==

== ENCOUNTER → 2018-06-06 | Outpatient (CLI) | payer MEDICARE, OTHER | END | disposition home or self-care (01) | LOC: WOUNDCARE 02:42 | DX: T81.31XD Disruption of external operation (surgical) wound, not elsewhere classified, subsequent encounter (principal); E11.622 Type 2 diabetes mellitus with other skin ulcer; L98.491 Non-pressure chronic ulcer of skin of other sites limited to breakdown of skin; L92.8 Other granulomatous disorders of the skin and subcutaneous tissue; I25.10 Atherosclerotic heart disease of native coronary artery without angina pectoris; I25.2 Old myocardial infarction; I48.91 Unspecified atrial fibrillation; M19.90 Unspecified osteoarthritis, unspecified site; J44.9 Chronic obstructive pulmonary disease, unspecified; G47.30 Sleep apnea, unspecified; Z87.891 Personal history of nicotine dependence; Y83.8 Other surgical procedures as the cause of abnormal reaction of the patient, or of later complication, without mention of misadventure at the time of the procedure ==

== ENCOUNTER → 2018-06-13 | Outpatient (CLI) | payer MEDICARE, OTHER | END | disposition home or self-care (01) | LOC: WOUNDCARE 03:29 | DX: T81.31XD Disruption of external operation (surgical) wound, not elsewhere classified, subsequent encounter (principal); E11.628 Type 2 diabetes mellitus with other skin complications; I25.10 Atherosclerotic heart disease of native coronary artery without angina pectoris; I25.2 Old myocardial infarction; I48.91 Unspecified atrial fibrillation; J44.9 Chronic obstructive pulmonary disease, unspecified; M19.90 Unspecified osteoarthritis, unspecified site; Z90.710 Acquired absence of both cervix and uterus; Z87.891 Personal history of nicotine dependence; Y83.8 Other surgical procedures as the cause of abnormal reaction of the patient, or of later complication, without mention of misadventure at the time of the procedure ==

== ENCOUNTER → 2018-06-20 | Outpatient (CLI) | payer MEDICARE, OTHER | END | disposition home or self-care (01) | LOC: WOUNDCARE 04:23 | DX: T81.31XD Disruption of external operation (surgical) wound, not elsewhere classified, subsequent encounter (principal); G47.30 Sleep apnea, unspecified; I25.10 Atherosclerotic heart disease of native coronary artery without angina pectoris; I25.2 Old myocardial infarction; I48.91 Unspecified atrial fibrillation; J44.9 Chronic obstructive pulmonary disease, unspecified; M19.90 Unspecified osteoarthritis, unspecified site; Z93.2 Ileostomy status; Z87.891 Personal history of nicotine dependence; Z90.710 Acquired absence of both cervix and uterus; Y83.8 Other surgical procedures as the cause of abnormal reaction of the patient, or of later complication, without mention of misadventure at the time of the procedure ==

== ENCOUNTER → 2018-07-18 | Outpatient (CLI) | payer MEDICARE, OTHER | END | disposition home or self-care (01) | LOC: WOUNDCARE 07-14 10:26 | DX: K94.19 Other complications of enterostomy (principal); I25.10 Atherosclerotic heart disease of native coronary artery without angina pectoris; I25.2 Old myocardial infarction; I48.91 Unspecified atrial fibrillation; M19.90 Unspecified osteoarthritis, unspecified site; J44.9 Chronic obstructive pulmonary disease, unspecified; G47.30 Sleep apnea, unspecified; Z87.891 Personal history of nicotine dependence; Y83.8 Other surgical procedures as the cause of abnormal reaction of the patient, or of later complication, without mention of misadventure at the time of the procedure ==

== ENCOUNTER → 2018-07-25 | Outpatient (CLI) | payer MEDICARE, OTHER | END | disposition home or self-care (01) | LOC: WOUNDCARE 02:20 | DX: K94.19 Other complications of enterostomy (principal); E11.628 Type 2 diabetes mellitus with other skin complications; L92.8 Other granulomatous disorders of the skin and subcutaneous tissue; I25.10 Atherosclerotic heart disease of native coronary artery without angina pectoris; I25.2 Old myocardial infarction; I48.91 Unspecified atrial fibrillation; M19.90 Unspecified osteoarthritis, unspecified site; J44.9 Chronic obstructive pulmonary disease, unspecified; G47.30 Sleep apnea, unspecified; Z87.891 Personal history of nicotine dependence; Y83.8 Other surgical procedures as the cause of abnormal reaction of the patient, or of later complication, without mention of misadventure at the time of the procedure ==

== ENCOUNTER → 2018-08-01 | Outpatient (CLI) | payer MEDICARE, OTHER | END | disposition home or self-care (01) | LOC: WOUNDCARE 03:54 | DX: T81.31XD Disruption of external operation (surgical) wound, not elsewhere classified, subsequent encounter (principal); E11.628 Type 2 diabetes mellitus with other skin complications; L92.9 Granulomatous disorder of the skin and subcutaneous tissue, unspecified; I48.91 Unspecified atrial fibrillation; I25.10 Atherosclerotic heart disease of native coronary artery without angina pectoris; I25.2 Old myocardial infarction; J44.9 Chronic obstructive pulmonary disease, unspecified; M19.90 Unspecified osteoarthritis, unspecified site; G47.30 Sleep apnea, unspecified; Z87.891 Personal history of nicotine dependence; Y83.8 Other surgical procedures as the cause of abnormal reaction of the patient, or of later complication, without mention of misadventure at the time of the procedure ==

== ENCOUNTER → 2018-08-08 | Outpatient (CLI) | payer MEDICARE, OTHER | END | disposition home or self-care (01) | LOC: WOUNDCARE 00:36 | DX: T81.31XD Disruption of external operation (surgical) wound, not elsewhere classified, subsequent encounter (principal); E11.628 Type 2 diabetes mellitus with other skin complications; L92.9 Granulomatous disorder of the skin and subcutaneous tissue, unspecified; I25.10 Atherosclerotic heart disease of native coronary artery without angina pectoris; I48.91 Unspecified atrial fibrillation; I25.2 Old myocardial infarction; J44.9 Chronic obstructive pulmonary disease, unspecified; G47.30 Sleep apnea, unspecified; M19.90 Unspecified osteoarthritis, unspecified site; Y83.8 Other surgical procedures as the cause of abnormal reaction of the patient, or of later complication, without mention of misadventure at the time of the procedure ==

== ENCOUNTER → 2018-08-15 | Outpatient (CLI) | payer MEDICARE, OTHER | END | disposition home or self-care (01) | LOC: WOUNDCARE 04:19 | DX: K94.19 Other complications of enterostomy (principal); E11.628 Type 2 diabetes mellitus with other skin complications; L92.9 Granulomatous disorder of the skin and subcutaneous tissue, unspecified; I25.10 Atherosclerotic heart disease of native coronary artery without angina pectoris; I25.2 Old myocardial infarction; I48.91 Unspecified atrial fibrillation; M19.90 Unspecified osteoarthritis, unspecified site; J44.9 Chronic obstructive pulmonary disease, unspecified; G47.30 Sleep apnea, unspecified ==

== ENCOUNTER → 2018-08-22 | Outpatient (CLI) | payer MEDICARE, OTHER | END | disposition home or self-care (01) | LOC: WOUNDCARE 02:20 | DX: K94.19 Other complications of enterostomy (principal); E11.628 Type 2 diabetes mellitus with other skin complications; L92.9 Granulomatous disorder of the skin and subcutaneous tissue, unspecified; J44.9 Chronic obstructive pulmonary disease, unspecified; I25.10 Atherosclerotic heart disease of native coronary artery without angina pectoris; I48.91 Unspecified atrial fibrillation; I25.2 Old myocardial infarction; M19.90 Unspecified osteoarthritis, unspecified site; G47.30 Sleep apnea, unspecified; Z87.891 Personal history of nicotine dependence ==

== ENCOUNTER → 2018-08-29 | Outpatient (CLI) | payer MEDICARE, OTHER | END | disposition home or self-care (01) | LOC: WOUNDCARE 00:46 | DX: T81.31XD Disruption of external operation (surgical) wound, not elsewhere classified, subsequent encounter (principal); E11.628 Type 2 diabetes mellitus with other skin complications; L92.9 Granulomatous disorder of the skin and subcutaneous tissue, unspecified; I25.10 Atherosclerotic heart disease of native coronary artery without angina pectoris; I25.2 Old myocardial infarction; I48.91 Unspecified atrial fibrillation; M19.90 Unspecified osteoarthritis, unspecified site; J44.9 Chronic obstructive pulmonary disease, unspecified; G47.30 Sleep apnea, unspecified; Z87.891 Personal history of nicotine dependence; Y83.8 Other surgical procedures as the cause of abnormal reaction of the patient, or of later complication, without mention of misadventure at the time of the procedure ==

== ENCOUNTER → 2018-09-05 | Outpatient (CLI) | payer MEDICARE, OTHER ==
[2018-09-05 09:55] LABS: BASO # 0.1 10*3/uL (0.0-0.1); BASO % 0.8 % (0.0-1.0); EOS # 0.2 10*3/uL (0.0-0.4); EOS % 2.4 % (1.0-4.0); HEMATOCRIT 41.6 % (37.0-47.0); HEMOGLOBIN 13.3 g/dl (12.0-16.0); LYMPH # 1.2 10*3/uL (1.3-4.4); LYMPH % 18.4 % (27.0-41.0); MEAN CELL VOLUME 96.5 fl (81.0-99.0); MEAN CORPUSCULAR HGB 30.9 pg (27.0-31.0); MEAN PLATELET VOLUME 11.9 fl (9.6-12.3); MONO # 0.5 10*3/uL (0.1-1.0); MONO % 6.9 % (3.0-9.0); NEUT # 4.7 10*3/uL (2.3-7.9); PLATELET COUNT AUTOMATED 154 10*3/uL (130-400); RED BLOOD COUNT 4.31 10*6/uL (4.10-5.10); RED CELL DISTRI WIDTH 14.9 % (0-14.5); WHITE BLOOD COUNT 6.6 10*3/uL (4.8-10.8)
[2018-09-05 10:16] LABS: ALBUMIN 3.8 gm/dl (3.1-4.5); ALKALINE PHOSPHATASE 68 U/L (45-117); BILIRUBIN, DIRECT < 0.1 mg/dL (0.0-0.2); BUN 15 mg/dl (7-24); CHLORIDE 108 mmol/L (98-107); CHOLESTEROL 212 mg/dL (<200); CREATININE 0.82 mg/dL (0.55-1.02); POTASSIUM 4.7 mmol/L (3.5-5.1); SGOT/AST 19 IU/L (3-35); SGPT/ALT 26 U/L (12-78); SODIUM 141 mmol/L (136-145); TOTAL PROTEIN 7.3 gm/dL (6.4-8.2); TRIGLYCERIDES 101 mg/dl (<150); VLDL CHOLESTEROL 20 mg/dL (6-40)
[2018-09-05 10:19] LABS: HDL CHOLESTEROL 59 mg/dl (40-60); LDL CHOLESTEROL 133 mg/dL (9-159)
== END | disposition home or self-care (01) ==
LOC: LAB 03:40 → WOUNDCARE 03:40
PROVIDERS: Internal Medicine
DX: D50.9 Iron deficiency anemia, unspecified (principal); E11.42 Type 2 diabetes mellitus with diabetic polyneuropathy; I25.10 Atherosclerotic heart disease of native coronary artery without angina pectoris

== ENCOUNTER → 2018-09-19 | Outpatient (CLI) | payer MEDICARE, OTHER | END | disposition home or self-care (01) | LOC: WOUNDCARE 05:32 | DX: T81.31XD Disruption of external operation (surgical) wound, not elsewhere classified, subsequent encounter (principal); E11.628 Type 2 diabetes mellitus with other skin complications; L92.9 Granulomatous disorder of the skin and subcutaneous tissue, unspecified; I25.10 Atherosclerotic heart disease of native coronary artery without angina pectoris; I48.91 Unspecified atrial fibrillation; I25.2 Old myocardial infarction; J44.9 Chronic obstructive pulmonary disease, unspecified; M19.90 Unspecified osteoarthritis, unspecified site; G47.30 Sleep apnea, unspecified; Y83.8 Other surgical procedures as the cause of abnormal reaction of the patient, or of later complication, without mention of misadventure at the time of the procedure ==

== ENCOUNTER → 2018-10-03 | Outpatient (CLI) | payer MEDICARE, OTHER | END | disposition home or self-care (01) | LOC: WOUNDCARE 04:27 | DX: T81.31XD Disruption of external operation (surgical) wound, not elsewhere classified, subsequent encounter (principal); E11.622 Type 2 diabetes mellitus with other skin ulcer; L98.491 Non-pressure chronic ulcer of skin of other sites limited to breakdown of skin; E11.628 Type 2 diabetes mellitus with other skin complications; L92.9 Granulomatous disorder of the skin and subcutaneous tissue, unspecified; I25.10 Atherosclerotic heart disease of native coronary artery without angina pectoris; I25.2 Old myocardial infarction; I48.91 Unspecified atrial fibrillation; M19.90 Unspecified osteoarthritis, unspecified site; J44.9 Chronic obstructive pulmonary disease, unspecified; G47.30 Sleep apnea, unspecified; Z87.891 Personal history of nicotine dependence; Y83.8 Other surgical procedures as the cause of abnormal reaction of the patient, or of later complication, without mention of misadventure at the time of the procedure ==

== ENCOUNTER → 2018-10-19 | Outpatient (CLI) | payer MEDICARE, OTHER | END | disposition home or self-care (01) | LOC: WOUNDCARE 04:11 | DX: T81.31XD Disruption of external operation (surgical) wound, not elsewhere classified, subsequent encounter (principal); E11.622 Type 2 diabetes mellitus with other skin ulcer; L98.492 Non-pressure chronic ulcer of skin of other sites with fat layer exposed; L92.8 Other granulomatous disorders of the skin and subcutaneous tissue; I25.10 Atherosclerotic heart disease of native coronary artery without angina pectoris; I48.91 Unspecified atrial fibrillation; I25.2 Old myocardial infarction; J44.9 Chronic obstructive pulmonary disease, unspecified; G47.30 Sleep apnea, unspecified; M19.90 Unspecified osteoarthritis, unspecified site; Z87.891 Personal history of nicotine dependence; Y83.8 Other surgical procedures as the cause of abnormal reaction of the patient, or of later complication, without mention of misadventure at the time of the procedure ==

== ENCOUNTER → 2018-10-26 | Outpatient (CLI) | payer MEDICARE, OTHER | END | disposition home or self-care (01) | LOC: WOUNDCARE 01:22 | DX: T81.31XD Disruption of external operation (surgical) wound, not elsewhere classified, subsequent encounter (principal); E11.622 Type 2 diabetes mellitus with other skin ulcer; L89.891 Pressure ulcer of other site, stage 1; L98.491 Non-pressure chronic ulcer of skin of other sites limited to breakdown of skin; I25.10 Atherosclerotic heart disease of native coronary artery without angina pectoris; I25.2 Old myocardial infarction; I48.91 Unspecified atrial fibrillation; J44.9 Chronic obstructive pulmonary disease, unspecified; M19.90 Unspecified osteoarthritis, unspecified site; G47.30 Sleep apnea, unspecified; Z87.891 Personal history of nicotine dependence; Y83.8 Other surgical procedures as the cause of abnormal reaction of the patient, or of later complication, without mention of misadventure at the time of the procedure ==

== ENCOUNTER → 2018-11-16 | Outpatient (CLI) | payer MEDICARE, OTHER ==
[~2018-11-16] MED LIST changes: -FISH OIL 10001000 MG PO; +FISH OIL EC 1,1 EAC2 PO; +OMEPRAZOLE40 MG PO; +ONE DAILY MULT1 EAC2 PO; -PRILOSEC20 MG PO; +[UNRECOGNIZED DRUG - OTHER] PO
== END | disposition home or self-care (01) ==
DX: T81.31XD Disruption of external operation (surgical) wound, not elsewhere classified, subsequent encounter (principal); E11.622 Type 2 diabetes mellitus with other skin ulcer; L98.491 Non-pressure chronic ulcer of skin of other sites limited to breakdown of skin; I25.10 Atherosclerotic heart disease of native coronary artery without angina pectoris; I25.2 Old myocardial infarction; I48.91 Unspecified atrial fibrillation; M19.90 Unspecified osteoarthritis, unspecified site; J44.9 Chronic obstructive pulmonary disease, unspecified; G47.30 Sleep apnea, unspecified; Z87.891 Personal history of nicotine dependence; Y83.8 Other surgical procedures as the cause of abnormal reaction of the patient, or of later complication, without mention of misadventure at the time of the procedure

== ENCOUNTER → 2018-11-23 | Outpatient (CLI) | payer MEDICARE, OTHER ==
[~2018-11-23] MED LIST changes: +FISH OIL 10001000 MG PO; -FISH OIL EC 1,1 EAC2 PO; -OMEPRAZOLE40 MG PO; -ONE DAILY MULT1 EAC2 PO; +PRILOSEC20 MG PO; -[UNRECOGNIZED DRUG - OTHER] PO
== END | disposition home or self-care (01) ==
LOC: WOUNDCARE 02:56
DX: T81.31XD Disruption of external operation (surgical) wound, not elsewhere classified, subsequent encounter (principal); E11.622 Type 2 diabetes mellitus with other skin ulcer; L98.491 Non-pressure chronic ulcer of skin of other sites limited to breakdown of skin; I25.10 Atherosclerotic heart disease of native coronary artery without angina pectoris; I25.2 Old myocardial infarction; I48.91 Unspecified atrial fibrillation; J44.9 Chronic obstructive pulmonary disease, unspecified; M19.90 Unspecified osteoarthritis, unspecified site; G47.30 Sleep apnea, unspecified; Z87.891 Personal history of nicotine dependence; Y83.8 Other surgical procedures as the cause of abnormal reaction of the patient, or of later complication, without mention of misadventure at the time of the procedure

== ENCOUNTER → 2018-11-30 | Outpatient (CLI) | payer MEDICARE, OTHER | END | disposition home or self-care (01) | LOC: WOUNDCARE 02:25 | DX: T81.31XD Disruption of external operation (surgical) wound, not elsewhere classified, subsequent encounter (principal); E11.622 Type 2 diabetes mellitus with other skin ulcer; L89.891 Pressure ulcer of other site, stage 1; L98.491 Non-pressure chronic ulcer of skin of other sites limited to breakdown of skin; I25.10 Atherosclerotic heart disease of native coronary artery without angina pectoris; I25.2 Old myocardial infarction; I48.91 Unspecified atrial fibrillation; J44.9 Chronic obstructive pulmonary disease, unspecified; M19.90 Unspecified osteoarthritis, unspecified site; G47.30 Sleep apnea, unspecified; Z87.891 Personal history of nicotine dependence; Y83.8 Other surgical procedures as the cause of abnormal reaction of the patient, or of later complication, without mention of misadventure at the time of the procedure ==

== ENCOUNTER → 2018-12-05 | Outpatient (CLI) | payer MEDICARE, OTHER | END | disposition home or self-care (01) | LOC: WOUNDCARE 01:56 | DX: T81.31XD Disruption of external operation (surgical) wound, not elsewhere classified, subsequent encounter (principal); E11.622 Type 2 diabetes mellitus with other skin ulcer; L89.891 Pressure ulcer of other site, stage 1; L98.491 Non-pressure chronic ulcer of skin of other sites limited to breakdown of skin; L92.9 Granulomatous disorder of the skin and subcutaneous tissue, unspecified; I25.10 Atherosclerotic heart disease of native coronary artery without angina pectoris; I25.2 Old myocardial infarction; I48.91 Unspecified atrial fibrillation; J44.9 Chronic obstructive pulmonary disease, unspecified; G47.30 Sleep apnea, unspecified; Z93.3 Colostomy status; Z87.891 Personal history of nicotine dependence; Y83.8 Other surgical procedures as the cause of abnormal reaction of the patient, or of later complication, without mention of misadventure at the time of the procedure ==

== ENCOUNTER → 2018-12-12 | Outpatient (CLI) | payer MEDICARE, OTHER ==
[~2018-12-12] MED LIST changes: -FISH OIL 10001000 MG PO; +FISH OIL EC 1,1 EAC2 PO; +OMEPRAZOLE40 MG PO; +ONE DAILY MULT1 EAC2 PO; -PRILOSEC20 MG PO; +[UNRECOGNIZED DRUG - OTHER] PO
== END | disposition home or self-care (01) ==
LOC: WOUNDCARE 02:07
DX: T81.31XD Disruption of external operation (surgical) wound, not elsewhere classified, subsequent encounter (principal); E11.622 Type 2 diabetes mellitus with other skin ulcer; L89.891 Pressure ulcer of other site, stage 1; L98.491 Non-pressure chronic ulcer of skin of other sites limited to breakdown of skin; I25.10 Atherosclerotic heart disease of native coronary artery without angina pectoris; I48.91 Unspecified atrial fibrillation; I25.2 Old myocardial infarction; J44.9 Chronic obstructive pulmonary disease, unspecified; M19.90 Unspecified osteoarthritis, unspecified site; G47.30 Sleep apnea, unspecified; Z87.891 Personal history of nicotine dependence; Y83.8 Other surgical procedures as the cause of abnormal reaction of the patient, or of later complication, without mention of misadventure at the time of the procedure

== ENCOUNTER → 2018-12-19 | Outpatient (CLI) | payer MEDICARE, OTHER | END | disposition home or self-care (01) | LOC: WOUNDCARE 02:27 | DX: T81.31XD Disruption of external operation (surgical) wound, not elsewhere classified, subsequent encounter (principal); E11.622 Type 2 diabetes mellitus with other skin ulcer; L89.891 Pressure ulcer of other site, stage 1; L98.491 Non-pressure chronic ulcer of skin of other sites limited to breakdown of skin; B35.8 Other dermatophytoses; S30.811D Abrasion of abdominal wall, subsequent encounter; I25.10 Atherosclerotic heart disease of native coronary artery without angina pectoris; I25.2 Old myocardial infarction; I48.91 Unspecified atrial fibrillation; M19.90 Unspecified osteoarthritis, unspecified site; J44.9 Chronic obstructive pulmonary disease, unspecified; G47.30 Sleep apnea, unspecified; Z87.891 Personal history of nicotine dependence; Y83.8 Other surgical procedures as the cause of abnormal reaction of the patient, or of later complication, without mention of misadventure at the time of the procedure ==

== ENCOUNTER 2018-12-24 14:07 | Emergency (ER) | payer MEDICARE, OTHER ==
[~2018-12-24] VITALS: Ht 152.4 cm; Wt 85.3 kg
[~2018-12-24 14:07] MED LIST changes: -ONE DAILY MULT1 EAC2 PO; -[UNRECOGNIZED DRUG - OTHER] PO
[2019-03-25] MEDS ORDERED: ONE DAILY MULT1 EAC2 PO (22:52)
[2019-03-25] MEDS ORDERED: [UNRECOGNIZED DRUG - OTHER] PO (22:59)
== END 2018-12-24 14:34 | disposition home or self-care (01) ==
LOC: ED 14:07
DX: B37.2 Candidiasis of skin and nail (principal); F42.4 Excoriation (skin-picking) disorder; Z79.899 Other long term (current) drug therapy; Z79.82 Long term (current) use of aspirin; Z88.1 Allergy status to other antibiotic agents; Z88.2 Allergy status to sulfonamides

== ENCOUNTER → 2018-12-26 | Outpatient (CLI) | payer MEDICARE, OTHER ==
[~2018-12-26] MED LIST changes: +ONE DAILY MULT1 EAC2 PO; +[UNRECOGNIZED DRUG - OTHER] PO
== END | disposition home or self-care (01) ==
LOC: WOUNDCARE 00:40
DX: T81.31XD Disruption of external operation (surgical) wound, not elsewhere classified, subsequent encounter (principal); E11.628 Type 2 diabetes mellitus with other skin complications; L92.8 Other granulomatous disorders of the skin and subcutaneous tissue; S30.811D Abrasion of abdominal wall, subsequent encounter; I25.10 Atherosclerotic heart disease of native coronary artery without angina pectoris; I25.2 Old myocardial infarction; I48.91 Unspecified atrial fibrillation; M19.90 Unspecified osteoarthritis, unspecified site; J44.9 Chronic obstructive pulmonary disease, unspecified; G47.30 Sleep apnea, unspecified; X58.XXXD Exposure to other specified factors, subsequent encounter; Z87.891 Personal history of nicotine dependence; Y83.8 Other surgical procedures as the cause of abnormal reaction of the patient, or of later complication, without mention of misadventure at the time of the procedure

== ENCOUNTER → 2020-07-01 | Outpatient (CLI) | payer MEDICARE, OTHER ==
[2020-07-01 12:46] LABS: BASO # 0.1 10*3/uL (0.0-0.1); BASO % 1.2 % (0.0-1.0); EOS # 0.6 10*3/uL (0.0-0.4); EOS % 11.6 % (1.0-4.0); HEMATOCRIT 39.9 % (37.0-47.0); LYMPH # 1.1 10*3/uL (1.3-4.4); LYMPH % 21.5 % (27.0-41.0); MEAN CELL VOLUME 96.1 fl (81.0-99.0); MEAN CORPUSCULAR HGB 30.6 pg (27.0-31.0); MEAN CORPUSCULAR HGB CONC 31.8 g/dl (33.0-37.0); MEAN PLATELET VOLUME 12.3 fl (9.6-12.3); MONO # 0.4 10*3/uL (0.1-1.0); MONO % 8.1 % (3.0-9.0); PLATELET COUNT AUTOMATED 146 10*3/uL (130-400); RED BLOOD COUNT 4.15 10*6/uL (4.10-5.10); RED CELL DISTRI WIDTH 14.6 % (0-14.5); WHITE BLOOD COUNT 5.2 10*3/uL (4.8-10.8)
[2020-07-01 12:55] LABS: URINE CREATININE RANDOM 78.5 mg/dL
[2020-07-01 12:58] LABS: ALBUMIN 3.7 gm/dl (3.1-4.5); BUN 27 mg/dl (7-24); CHLORIDE 114 mmol/L (98-107); CREATININE 0.99 mg/dL (0.55-1.02); POTASSIUM 4.3 mmol/L (3.5-5.1); SODIUM 144 mmol/L (136-145)
[2020-07-01 12:59] LABS: BACTERIA TRACE; BILIRUBIN NEGATIVE (NEGATIVE); BLOOD NEGATIVE (NEGATIVE); CLARITY CLEAR (CLEAR); COLOR YELLOW (YELLOW); EPITHELIAL CELLS 0-2; GLUCOSE NEGATIVE (NEGATIVE); KETONE NEGATIVE (NEGATIVE); LEUKO ESTERASE NEGATIVE (NEGATIVE); NITRITE NEGATIVE (NEGATIVE); SPECIFIC GRAVITY 1.015 (1.005-1.030); UROBILINOGEN 0.2 E.U./dl (0.2-1.0); WBC 0-2 wbc/hpf (0-5)
== END | disposition home or self-care (01) ==
LOC: LAB 12:08
PROVIDERS: Internal Medicine Nephrology
DX: E11.22 Type 2 diabetes mellitus with diabetic chronic kidney disease (principal); N17.9 Acute kidney failure, unspecified; Z79.899 Other long term (current) drug therapy

== ENCOUNTER → 2020-08-29 | Outpatient (CLI) | payer MEDICARE, OTHER | END | disposition home or self-care (01) | LOC: RAD 10:56 | PROVIDERS: ATTEND Internal Medicine | DX: R05 Cough (principal) ==

== ENCOUNTER → 2020-09-26 | Outpatient (CLI) | payer MEDICARE, OTHER ==
[2020-09-26 12:10] LABS: BASO # 0.1 10*3/uL (0.0-0.1); BASO % 0.8 % (0.0-1.0); EOS # 0.3 10*3/uL (0.0-0.4); EOS % 4.6 % (1.0-4.0); HEMATOCRIT 41.9 % (37.0-47.0); LYMPH # 1.3 10*3/uL (1.3-4.4); LYMPH % 21.3 % (27.0-41.0); MEAN CELL VOLUME 97.4 fl (81.0-99.0); MEAN CORPUSCULAR HGB 31.4 pg (27.0-31.0); MEAN CORPUSCULAR HGB CONC 32.2 g/dl (33.0-37.0); MEAN PLATELET VOLUME 11.8 fl (9.6-12.3); MONO # 0.5 10*3/uL (0.1-1.0); NEUT # 3.8 10*3/uL (2.3-7.9); NEUT % 63.6 % (47.0-73.0); PLATELET COUNT AUTOMATED 175 10*3/uL (130-400); RED CELL DISTRI WIDTH 14.5 % (0-14.5); WHITE BLOOD COUNT 5.9 10*3/uL (4.8-10.8)
[2020-09-26 12:13] LABS: BILIRUBIN Negative (Negative); BLOOD Negative (Negative); CLARITY Clear (Clear); COLOR Dark Yellow (Yellow); GLUCOSE Negative (Negative); KETONE Trace (Negative); LEUKO ESTERASE 1+ (Negative); NITRITE Negative (Negative); PH 6.5 (4.5-8.0)
[2020-09-26 12:35] LABS: BACTERIA 1+; CALCIUM OXALATE CRYSTALS 2+
[2020-09-26 12:35] LABS: BUN 20 mg/dl (7-24); CHLORIDE 109 mmol/L (98-107); CREATININE 0.97 mg/dL (0.55-1.02); IRON 136 ug/dL (50-170); POTASSIUM 4.3 mmol/L (3.5-5.1); SODIUM 143 mmol/L (136-145); TOTAL IRON BINDING CAPACITY 434 ug/dl (250-450)
== END | disposition home or self-care (01) ==
LOC: LAB 11:27
PROVIDERS: ATTEND Internal Medicine Nephrology
DX: N17.9 Acute kidney failure, unspecified (principal); D64.9 Anemia, unspecified; E11.9 Type 2 diabetes mellitus without complications; Z79.899 Other long term (current) drug therapy

== ENCOUNTER → 2021-04-30 | Outpatient (CLI) | payer MEDICARE, OTHER ==
[2021-04-30 10:03] LABS: BASO # 0.1 10*3/uL (0.0-0.1); EOS # 0.3 10*3/uL (0.0-0.4); EOS % 4.9 % (1.0-4.0); HEMATOCRIT 42.6 % (37.0-47.0); LYMPH # 1.2 10*3/uL (1.3-4.4); LYMPH % 17.7 % (27.0-41.0); MEAN CORPUSCULAR HGB 31.7 pg (27.0-31.0); MEAN CORPUSCULAR HGB CONC 31.7 g/dl (33.0-37.0); MEAN PLATELET VOLUME 11.9 fl (9.6-12.3); MONO # 0.5 10*3/uL (0.1-1.0); MONO % 6.7 % (3.0-9.0); NEUT # 4.6 10*3/uL (2.3-7.9); NEUT % 69.1 % (47.0-73.0); PLATELET COUNT AUTOMATED 181 10*3/uL (130-400); RED BLOOD COUNT 4.26 10*6/uL (4.10-5.10); RED CELL DISTRI WIDTH 13.8 % (0-14.5); WHITE BLOOD COUNT 6.7 10*3/uL (4.8-10.8)
[2021-04-30 10:08] LABS: BILIRUBIN Negative (Negative); BLOOD Negative (Negative); CLARITY Clear (Clear); COLOR Yellow (Yellow); GLUCOSE Negative (Negative); KETONE Negative (Negative); LEUKO ESTERASE Trace (Negative); NITRITE Negative (Negative); PH 6.5 (4.5-8.0); SPECIFIC GRAVITY 1.015 (1.001-1.030); UROBILINOGEN 0.2 E.U./dl (0.0-1.0)
[2021-04-30 10:20] LABS: RBC 0-2 rbc/hpf (0-2)
== END | disposition home or self-care (01) ==
LOC: LAB 09:35
PROVIDERS: ATTEND Internal Medicine
DX: N30.01 Acute cystitis with hematuria (principal)

== ENCOUNTER → 2021-11-05 | Outpatient (CLI) | payer MEDICARE, OTHER ==
[2021-11-05 11:25] LABS: BASO % 0.8 % (0.0-1.0); EOS # 0.3 10*3/uL (0.0-0.4); HEMATOCRIT 40.2 % (37.0-47.0); LYMPH # 1.1 10*3/uL (1.3-4.4); MEAN CELL VOLUME 95.5 fl (81.0-99.0); MEAN CORPUSCULAR HGB 31.4 pg (27.0-31.0); MEAN CORPUSCULAR HGB CONC 32.8 g/dl (33.0-37.0); MONO # 0.5 10*3/uL (0.1-1.0); NEUT # 3.3 10*3/uL (2.3-7.9); NEUT % 63.4 % (47.0-73.0); PLATELET COUNT AUTOMATED 125 10*3/uL (130-400); RED BLOOD COUNT 4.21 10*6/uL (4.10-5.10); RED CELL DISTRI WIDTH 14.5 % (0-14.5); WHITE BLOOD COUNT 5.2 10*3/uL (4.8-10.8)
[2021-11-05 11:39] LABS: ALBUMIN 3.8 gm/dl (3.1-4.5); BUN 12 mg/dl (7-24); CHLORIDE 108 mmol/L (98-107); CREATININE 1.04 mg/dL (0.55-1.02); POTASSIUM 4.5 mmol/L (3.5-5.1); SODIUM 141 mmol/L (136-145)
[2021-11-05 11:40] LABS: IRON 166 ug/dL (50-170); TOTAL IRON BINDING CAPACITY 362 ug/dl (250-450); URINE CREATININE RANDOM 71.2 mg/dL
[2021-11-05 11:49] LABS: BILIRUBIN Negative (Negative); BLOOD Negative (Negative); CLARITY Clear (Clear); COLOR Dark Yellow (Yellow); GLUCOSE Negative (Negative); KETONE Negative (Negative); LEUKO ESTERASE Trace (Negative); NITRITE Negative (Negative); UROBILINOGEN 0.2 E.U./dl (0.0-1.0)
[2021-11-05 13:03] LABS: BACTERIA 1+
== END | disposition home or self-care (01) ==
LOC: LAB 10:56
PROVIDERS: ATTEND Internal Medicine Nephrology
DX: N17.9 Acute kidney failure, unspecified (principal); E11.9 Type 2 diabetes mellitus without complications; Z79.899 Other long term (current) drug therapy

== ENCOUNTER → 2023-07-26 | Outpatient (CLI) | payer MEDICARE, OTHER ==
[~2023-07-26] MED LIST changes: +ASPIRIN ADULT L81 M1 PO; +AUGMENTIN 500500 M1 PO; +COREG25 MG PO; +CRESTOR5 M1 PO; +FERROUS SULFAT325 MG PO; +FISH OIL 1,2001 EACH PO; +HYDROCODONE-AC1 EACH PO; +HYDROXYZINE10 MG PO; +Ipratropium Brom3 ML INH; +LASIX40 MG PO; +NEXIUM40 MG PO; +NITROSTAT0.4 MG SL; +PREDNISONE10 MG PO; +PROZAC20 MG PO; +ROSUVASTATIN CA40 MG PO; +SUPER B WITH V1 EACH PO; +SYMB160 INH; +TRELEGY ELLIPT1 EACH INH; +VITAMIN B1250 MCG PO; +VITAMIN D350 MCG PO; +ZITHROMAX250 MG PO; -ZYPREXA5 MG PO; +ZYPREXA7.5 M1 PO
[2023-07-26 11:19] LABS: BASO % 0.5 % (0.0-1.0); EOS # 0.4 10*3/uL (0.0-0.4); EOS % 5.5 % (1.0-4.0); HEMATOCRIT 42.9 % (37.0-47.0); LYMPH # 0.9 10*3/uL (1.3-4.4); LYMPH % 11.5 % (27.0-41.0); MEAN CELL VOLUME 94.5 fl (81.0-99.0); MEAN CORPUSCULAR HGB 30.8 pg (27.0-31.0); MEAN CORPUSCULAR HGB CONC 32.6 g/dl (33.0-37.0); MEAN PLATELET VOLUME 11.8 fl (9.6-12.3); MONO # 0.7 10*3/uL (0.1-1.0); MONO % 9.3 % (3.0-9.0); NEUT # 5.5 10*3/uL (2.3-7.9); NEUT % 72.8 % (47.0-73.0); PLATELET COUNT AUTOMATED 104 10*3/uL (130-400); RED BLOOD COUNT 4.54 10*6/uL (4.10-5.10); RED CELL DISTRI WIDTH 14.2 % (0-14.5); WHITE BLOOD COUNT 7.5 10*3/uL (4.8-10.8)
[2023-07-26 11:50] LABS: ALKALINE PHOSPHATASE 53 U/L (46-116); BUN 20 mg/dl (9-23); CHLORIDE 106 mmol/L (98-107); POTASSIUM 4.5 mmol/L (3.4-5.1); SGPT/ALT 32 U/L (10-49); TOTAL PROTEIN 7.5 gm/dL (6.0-8.0)
== END | disposition home or self-care (01) ==
LOC: LAB 11:00
PROVIDERS: ATTEND Nurse Practitioner Family
DX: J44.1 Chronic obstructive pulmonary disease with (acute) exacerbation (principal); R05.8 Other specified cough; R53.83 Other fatigue; R06.02 Shortness of breath

== ENCOUNTER 2023-10-08 12:51 | Emergency (ER) | payer MEDICARE, OTHER ==
[~2023-10-08] VITALS: Ht 152.4 cm; Wt 98.4 kg
[~2023-10-08 12:51] MED LIST changes: +CALCIUM 600+D1 EAC4 PO; +IRON325 M1 PO
[2023-10-08 16:05] LABS: BASO % 0.7 % (0.0-1.0); EOS # 0.6 10*3/uL (0.0-0.4); EOS % 11.6 % (1.0-4.0); HEMATOCRIT 39.8 % (37.0-47.0); LYMPH # 1.1 10*3/uL (1.3-4.4); LYMPH % 19.7 % (27.0-41.0); MEAN CELL VOLUME 95.7 fl (81.0-99.0); MEAN CORPUSCULAR HGB 31.5 pg (27.0-31.0); MEAN CORPUSCULAR HGB CONC 32.9 g/dl (33.0-37.0); MEAN PLATELET VOLUME 11.5 fl (9.6-12.3); MONO # 0.5 10*3/uL (0.1-1.0); MONO % 9.7 % (3.0-9.0); NEUT # 3.2 10*3/uL (2.3-7.9); NEUT % 57.9 % (47.0-73.0); PLATELET COUNT AUTOMATED 122 10*3/uL (130-400); RED BLOOD COUNT 4.16 10*6/uL (4.10-5.10); RED CELL DISTRI WIDTH 14.1 % (0-14.5); WHITE BLOOD COUNT 5.4 10*3/uL (4.8-10.8)
[2023-10-08 16:18] LABS: ACT PARTIAL THROMBO TIME 27.6 SECONDS (20.0-32.1)
[2023-10-08 16:38] LABS: ALKALINE PHOSPHATASE 52 U/L (46-116); BUN 14 mg/dl (9-23); CHLORIDE 103 mmol/L (98-107); POTASSIUM 3.8 mmol/L (3.4-5.1); SGPT/ALT 25 U/L (5-49); TOTAL PROTEIN 7.7 gm/dL (6.0-8.0)
[2023-10-08] MEDS ORDERED: KEFLEX 500 MG E2 CAP PO (16:56)
[2023-10-08] MEDS ORDERED: CEPHALEXIN500 M1 PO (17:04)
== END 2023-10-08 17:06 | disposition home or self-care (01) ==
LOC: ED 12:51
PROVIDERS: Nurse Practitioner Family
DX: L03.116 Cellulitis of left lower limb (principal); I25.10 Atherosclerotic heart disease of native coronary artery without angina pectoris; J44.9 Chronic obstructive pulmonary disease, unspecified; K21.9 Gastro-esophageal reflux disease without esophagitis; I48.91 Unspecified atrial fibrillation; E11.22 Type 2 diabetes mellitus with diabetic chronic kidney disease; I12.9 Hypertensive chronic kidney disease with stage 1 through stage 4 chronic kidney disease, or unspecified chronic kidney disease; N18.31 Chronic kidney disease, stage 3a; E78.00 Pure hypercholesterolemia, unspecified; E78.5 Hyperlipidemia, unspecified; Z88.7 Allergy status to serum and vaccine; Z88.1 Allergy status to other antibiotic agents; Z88.8 Allergy status to other drugs, medicaments and biological substances; Z88.2 Allergy status to sulfonamides; Z90.710 Acquired absence of both cervix and uterus; Z98.890 Other specified postprocedural states; Z95.5 Presence of coronary angioplasty implant and graft; Z90.49 Acquired absence of other specified parts of digestive tract

== ENCOUNTER → 2023-11-03 | Outpatient (CLI) | payer MEDICARE, OTHER ==
[~2023-11-03] MED LIST changes: +CEPHALEXIN500 M1 PO; +KEFLEX 500 MG E2 CAP PO
[2023-11-03 14:35] LABS: BASO % 0.8 % (0.0-1.0); EOS # 0.4 10*3/uL (0.0-0.4); EOS % 7.6 % (1.0-4.0); HEMATOCRIT 40.1 % (37.0-47.0); LYMPH # 0.7 10*3/uL (1.3-4.4); LYMPH % 12.6 % (27.0-41.0); MEAN CELL VOLUME 98.3 fl (81.0-99.0); MEAN CORPUSCULAR HGB 30.9 pg (27.0-31.0); MEAN CORPUSCULAR HGB CONC 31.4 g/dl (33.0-37.0); MEAN PLATELET VOLUME 11.6 fl (9.6-12.3); MONO # 0.4 10*3/uL (0.1-1.0); MONO % 7.6 % (3.0-9.0); NEUT # 3.7 10*3/uL (2.3-7.9); NEUT % 71.2 % (47.0-73.0); PLATELET COUNT AUTOMATED 103 10*3/uL (130-400); RED BLOOD COUNT 4.08 10*6/uL (4.10-5.10); RED CELL DISTRI WIDTH 13.2 % (0-14.5); WHITE BLOOD COUNT 5.2 10*3/uL (4.8-10.8)
[2023-11-03 15:09] LABS: ALKALINE PHOSPHATASE 61 U/L (46-116); BUN 16 mg/dl (9-23); CHLORIDE 103 mmol/L (98-107); FREE T4 0.76 ng/dl (0.89-1.76); POTASSIUM 4.4 mmol/L (3.4-5.1); SGPT/ALT 29 U/L (5-49); TOTAL PROTEIN 7.3 gm/dL (6.0-8.0)
== END | disposition home or self-care (01) ==
LOC: LAB 14:15
PROVIDERS: Nurse Practitioner Family; ATTEND Pediatrics Pediatric Cardiology
DX: L30.9 Dermatitis, unspecified (principal); Z79.899 Other long term (current) drug therapy

== ENCOUNTER → 2024-02-24 | Outpatient (CLI) | payer MEDICARE, OTHER | END | disposition home or self-care (01) | LOC: LAB 17:03 | PROVIDERS: ATTEND Nurse Practitioner Family | DX: Z20.822 Contact with and (suspected) exposure to COVID-19 (principal) ==

== ENCOUNTER 2024-03-12 10:38 | Inpatient (IN) | payer MEDICARE, OTHER ==
[~2024-03-12] VITALS: Ht 152.4 cm; Wt 99.6 kg
[2024-03-12 11:15] VITALS: BP 99/48
[2024-03-12] MEDS ORDERED: SODIUM CHLORIDE 0.9% 1,000 ML IV ONE (11:30)
[2024-03-12 11:46] LABS: BASO % 0.3 % (0.0-1.0); EOS % 0.1 % (1.0-4.0); HEMATOCRIT 36.7 % (37.0-47.0); LYMPH % 9.5 % (27.0-41.0); MEAN CELL VOLUME 95.6 fl (81.0-99.0); MEAN CORPUSCULAR HGB 29.9 pg (27.0-31.0); MEAN CORPUSCULAR HGB CONC 31.3 g/dl (33.0-37.0); MEAN PLATELET VOLUME 11.6 fl (9.6-12.3); MONO # 0.7 10*3/uL (0.1-1.0); MONO % 6.9 % (3.0-9.0); NEUT # 8.9 10*3/uL (2.3-7.9); NEUT % 82.6 % (47.0-73.0); PLATELET COUNT AUTOMATED 104 10*3/uL (130-400); RED BLOOD COUNT 3.84 10*6/uL (4.10-5.10); RED CELL DISTRI WIDTH 14.3 % (0-14.5); WHITE BLOOD COUNT 10.8 10*3/uL (4.8-10.8)
[2024-03-12 12:05] LABS: POTASSIUM 3.8 mmol/L (3.4-5.1); TOTAL PROTEIN 7.6 gm/dL (6.0-8.0)
[2024-03-12] MEDS ORDERED: AZITHROMYCIN 250 ML IV ONE (12:10)
[2024-03-12] MEDS ORDERED: Ceftriaxone Sodium 1 GM/10 ML SYR IV ONE (12:10)
[2024-03-12] MEDS ORDERED: IBUPROFEN 600 MG TAB PO ONE (12:30)
[2024-03-12] MEDS ORDERED: BISACODYL 10 MG SUPP R PRN (13:15)
[2024-03-12] MEDS ORDERED: ACETAMINOPHEN 325 MG TAB PO PRN (13:15)
[2024-03-12] MEDS ORDERED: ACETAMINOPHEN 650 MG SUPP R PRN (13:15)
[2024-03-12] MEDS ORDERED: Magnesium Hydroxide 30 ML UDC PO PRN (13:15)
[2024-03-12] MEDS ORDERED: BISACODYL 5 MG TAB PO PRN (13:15)
[2024-03-12] MEDS ORDERED: Ondansetron Hydrochloride 4 MG/2 ML VIAL IV PRN (13:15)
[2024-03-12] MEDS ORDERED: Albuterol Sulf/Ipratropium 3 ML VIAL NEB SCH (14:05)
[2024-03-12] MEDS ORDERED: methylPREDNISolone sod succ 125 MG VIAL IV ONE (14:05)
[2024-03-12] MEDS ORDERED: XYZAL5 M1 PO (14:05)
[2024-03-12 14:31] VITALS: BP 105/46
[2024-03-12 15:10] VITALS: BP 106/49
[2024-03-12] MEDS ORDERED: OXYBUTYNIN5 MG PO (19:15)
[2024-03-12] MEDS ORDERED: HYDROXYZINE HCL25 MG PO (19:17)
[2024-03-12 20:00] VITALS: BP 125/55
[2024-03-12] MEDS ORDERED: GUAIFENESIN 600 MG TAB ER PO SCH (22:00)
[2024-03-12 22:22] VITALS: BP 118/64
[2024-03-12 22:30] LABS: ABG BASE EXCESS -0.9 mmol/L (-2.0-2.0); ARTERIAL BLOOD GAS PH 7.371 (7.35-7.45)
[2024-03-13] VITALS: BP 119/63
[2024-03-13] MEDS ORDERED: NITROGLYCERIN 0.4 MG BOT SL PRN (02:25)
[2024-03-13 06:07] LABS: HEMATOCRIT 35.9 % (37.0-47.0); MEAN CELL VOLUME 95.7 fl (81.0-99.0); MEAN CORPUSCULAR HGB 29.9 pg (27.0-31.0); MEAN CORPUSCULAR HGB CONC 31.2 g/dl (33.0-37.0); MEAN PLATELET VOLUME 12.2 fl (9.6-12.3); PLATELET COUNT AUTOMATED 100 10*3/uL (130-400); RED BLOOD COUNT 3.75 10*6/uL (4.10-5.10); WHITE BLOOD COUNT 8.3 10*3/uL (4.8-10.8)
[2024-03-13 06:10] LABS: MANUAL DIFF REFLEX YES
[2024-03-13 07:04] LABS: BUN 25 mg/dl (9-23); CHLORIDE 104 mmol/L (98-107); CHOLESTEROL 164 mg/dL (<200); FREE T4 0.68 ng/dl (0.89-1.76); LDL CHOLESTEROL 90 mg/dL (9-159); POTASSIUM 3.5 mmol/L (3.4-5.1); TRIGLYCERIDES 128 mg/dl (<150)
[2024-03-13 07:38] LABS: PLATELET SUFFICIENCY LOW (NORMAL); TOTAL CELLS COUNTED 100 #CELLS
[2024-03-13 08:00] VITALS: BP 135/61
[2024-03-13] MEDS ORDERED: PREGABALIN 75 MG CAP PO SCH (10:00)
[2024-03-13] MEDS ORDERED: Pantoprazole Sodium 40 MG TAB PO SCH (10:00)
[2024-03-13] MEDS ORDERED: Enoxaparin Sodium 40 MG/0.4 ML SYR SC SCH (10:00)
[2024-03-13] MEDS ORDERED: methylPREDNISolone sod succ 40 MG VIAL IV SCH (10:00)
[2024-03-13] MEDS ORDERED: Rosuvastatin Calcium 10 MG TABLET PO SCH (10:00)
[2024-03-13] MEDS ORDERED: GEMFIBROZIL 600 MG TAB PO SCH (10:00)
[2024-03-13] MEDS ORDERED: TRELEGY ELLIPTA INH SCH (10:00)
[2024-03-13] MEDS ORDERED: FERROUS SULFATE 325 MG TAB PO SCH (10:00)
[2024-03-13] MEDS ORDERED: Fluoxetine Hydrochloride 20 MG CAP PO SCH (10:00)
[2024-03-13] MEDS ORDERED: Oxybutynin Chloride 5 MG TAB PO SCH (10:00)
[2024-03-13] MEDS ORDERED: CARVEDILOL 25 MG TAB PO SCH (10:00)
[2024-03-13] MEDS ORDERED: CYANOCOBALAMIN 100 MCG TAB PO SCH (10:00)
[2024-03-13] MEDS ORDERED: MULTIVITAMIN 1 TAB TAB PO SCH (10:00)
[2024-03-13] MEDS ORDERED: ASPIRIN, CHEWABLE 81 MG TAB PO SCH (10:00)
[2024-03-13] MEDS ORDERED: ASCORBIC ACID 500 MG TAB PO SCH (10:00)
[2024-03-13] MEDS ORDERED: Polyethylene Glycol 3350 17 GM PACKET PO SCH (10:00)
[2024-03-13] MEDS ORDERED: LEVOCETIRIZINE 5 MG PO SCH (10:00)
[2024-03-13 12:00] VITALS: BP 132/57
[2024-03-13] MEDS ORDERED: Ceftriaxone Sodium 1 GM,IV 1 EA in SYRINGE INFUSION 10 ML IV SCH (12:00)
[2024-03-13] MEDS ORDERED: AZITHROMYCIN 250 ML IV SCH (14:00)
[2024-03-13 16:00] VITALS: BP 124/53
[2024-03-13] MEDS ORDERED: BUDESONIDE 0.5 MG AMP NEB SCH (16:10)
[2024-03-13 20:00] VITALS: BP 137/59
[2024-03-13] MEDS ORDERED: Acetaminophen/Hydrocodone HP 10/325 PO PRN (21:25)
[2024-03-13] MEDS ORDERED: OLANZAPINE 7.5 MG TAB PO SCH (22:00)
[2024-03-14] VITALS: BP 112/53
[2024-03-14 06:21] LABS: BASO % 0.1 % (0.0-1.0); HEMATOCRIT 36.4 % (37.0-47.0); LYMPH # 0.6 10*3/uL (1.3-4.4); LYMPH % 7.4 % (27.0-41.0); MEAN CELL VOLUME 96.6 fl (81.0-99.0); MEAN CORPUSCULAR HGB 30.2 pg (27.0-31.0); MEAN CORPUSCULAR HGB CONC 31.3 g/dl (33.0-37.0); MEAN PLATELET VOLUME 12.2 fl (9.6-12.3); MONO # 0.2 10*3/uL (0.1-1.0); MONO % 2.2 % (3.0-9.0); NEUT # 6.9 10*3/uL (2.3-7.9); NEUT % 89.6 % (47.0-73.0); PLATELET COUNT AUTOMATED 98 10*3/uL (130-400); RED BLOOD COUNT 3.77 10*6/uL (4.10-5.10); WHITE BLOOD COUNT 7.7 10*3/uL (4.8-10.8)
[2024-03-14 06:34] LABS: BUN 26 mg/dl (9-23); CHLORIDE 106 mmol/L (98-107); POTASSIUM 4.3 mmol/L (3.4-5.1)
[2024-03-14 08:00] VITALS: BP 131/73
[2024-03-14] MEDS ORDERED: Cetirizine Hydrochloride 10 MG TAB PO SCH (10:00)
[2024-03-14] MEDS ORDERED: Cefepime Hydrochloride 2 GM in SODIUM CHLORIDE 0.9% 50 ML IV SCH (10:00)
[2024-03-14] MEDS ORDERED: VANCOMYCIN/WATER FOR INJ (PEG) 300 ML IV SCH (11:00)
[2024-03-14 11:57] VITALS: BP 131/73
[2024-03-14 12:00] VITALS: BP 138/60
[2024-03-14 16:00] VITALS: BP 153/86
[2024-03-14 20:00] VITALS: BP 160/69
[2024-03-14] MEDS ORDERED: MICONAZOLE NITRATE 2% 75 GM BOT T SCH (22:00)
[2024-03-15] VITALS: BP 136/65
[2024-03-15 06:13] LABS: ALKALINE PHOSPHATASE 59 U/L (46-116); BUN 25 mg/dl (9-23); CHLORIDE 106 mmol/L (98-107); POTASSIUM 4.6 mmol/L (3.4-5.1); SGPT/ALT 17 U/L (5-49); TOTAL PROTEIN 7.5 gm/dL (6.0-8.0)
[2024-03-15 08:00] VITALS: BP 148/56; BP 148/62
[2024-03-15] MEDS ORDERED: CARVEDILOL 25 MG TAB PO SCH (10:00)
[2024-03-15 12:00] VITALS: BP 146/71
[2024-03-15 16:00] VITALS: BP 145/66
[2024-03-15 20:00] VITALS: BP 147/70
[2024-03-16] VITALS: BP 153/78
[2024-03-16 07:09] LABS: BASO % 0.3 % (0.0-1.0); HEMATOCRIT 38.4 % (37.0-47.0); LYMPH # 0.5 10*3/uL (1.3-4.4); LYMPH % 8.4 % (27.0-41.0); MEAN CORPUSCULAR HGB 29.8 pg (27.0-31.0); MEAN PLATELET VOLUME 11.9 fl (9.6-12.3); MONO # 0.3 10*3/uL (0.1-1.0); MONO % 4.3 % (3.0-9.0); NEUT # 5.5 10*3/uL (2.3-7.9); NEUT % 85.1 % (47.0-73.0); PLATELET COUNT AUTOMATED 116 10*3/uL (130-400); RED CELL DISTRI WIDTH 13.5 % (0-14.5); WHITE BLOOD COUNT 6.4 10*3/uL (4.8-10.8)
[2024-03-16 07:40] LABS: BUN 22 mg/dl (9-23); CHLORIDE 106 mmol/L (98-107); POTASSIUM 4.7 mmol/L (3.4-5.1)
[2024-03-16 08:00] VITALS: BP 131/64
[2024-03-16] MEDS ORDERED: OMNICEF300 MG PO (11:27)
[2024-03-16] MEDS ORDERED: PREDNISONE10 MG PO (11:27)
[2024-03-16 12:00] VITALS: BP 132/60
== END 2024-03-16 15:30 | disposition home or self-care (01) | DRG 871 ==
LOC: ED 10:38 → EDHOLD 12:36 → 4E 12:36 → EDHOLD 13:28 → 4E 14:11
PROVIDERS: Nurse Practitioner Family; Student in an Organized Health Care Education/Training Program; ADMIT Internal Medicine; ATTEND Internal Medicine
PROC: 5A09357 Assistance with Respiratory Ventilation, Less than 24 Consecutive Hours, Continuous Positive Airway Pressure (ICD-10-PCS; principal; 2024-03-13)
PROC: 5A09357 Assistance with Respiratory Ventilation, Less than 24 Consecutive Hours, Continuous Positive Airway Pressure (ICD-10-PCS; 2024-03-14)
PROC: 5A0935A Assistance with Respiratory Ventilation, Less than 24 Consecutive Hours, High Flow/Velocity Cannula (ICD-10-PCS; 2024-03-14)
PROC: 5A09357 Assistance with Respiratory Ventilation, Less than 24 Consecutive Hours, Continuous Positive Airway Pressure (ICD-10-PCS; 2024-03-15)
PROC: 5A0935A Assistance with Respiratory Ventilation, Less than 24 Consecutive Hours, High Flow/Velocity Cannula (ICD-10-PCS; 2024-03-15)
PROC: 5A09357 Assistance with Respiratory Ventilation, Less than 24 Consecutive Hours, Continuous Positive Airway Pressure (ICD-10-PCS; 2024-03-16)
DX: A41.9 Sepsis, unspecified organism (principal); J15.69 Pneumonia due to other Gram-negative bacteria; J96.21 Acute and chronic respiratory failure with hypoxia; N17.0 Acute kidney failure with tubular necrosis; J44.1 Chronic obstructive pulmonary disease with (acute) exacerbation; J44.0 Chronic obstructive pulmonary disease with (acute) lower respiratory infection; Z68.41 Body mass index [BMI] 40.0-44.9, adult; D64.9 Anemia, unspecified; R73.9 Hyperglycemia, unspecified; D69.6 Thrombocytopenia, unspecified; E66.01 Morbid (severe) obesity due to excess calories; E78.2 Mixed hyperlipidemia; J44.9 Chronic obstructive pulmonary disease, unspecified; G47.33 Obstructive sleep apnea (adult) (pediatric); I25.10 Atherosclerotic heart disease of native coronary artery without angina pectoris; K21.9 Gastro-esophageal reflux disease without esophagitis; K76.0 Fatty (change of) liver, not elsewhere classified; I10 Essential (primary) hypertension; J45.30 Mild persistent asthma, uncomplicated; I48.0 Paroxysmal atrial fibrillation; M15.9 Polyosteoarthritis, unspecified; Z95.5 Presence of coronary angioplasty implant and graft; Z90.710 Acquired absence of both cervix and uterus; Z82.49 Family history of ischemic heart disease and other diseases of the circulatory system; Z88.2 Allergy status to sulfonamides; Z88.7 Allergy status to serum and vaccine; Z88.1 Allergy status to other antibiotic agents; Z88.8 Allergy status to other drugs, medicaments and biological substances; Z79.51 Long term (current) use of inhaled steroids; Z79.2 Long term (current) use of antibiotics; Z79.899 Other long term (current) drug therapy; Z79.1 Long term (current) use of non-steroidal anti-inflammatories (NSAID)

== ENCOUNTER 2024-04-07 09:13 | Inpatient (IN) | payer MEDICARE, OTHER ==
[~2024-04-07] VITALS: Ht 152.4 cm; Wt 97.6 kg
[~2024-04-07 09:13] MED LIST changes: +HYDROXYZINE HCL25 MG PO; +OMNICEF300 MG PO; +OXYBUTYNIN5 MG PO; +XYZAL5 M1 PO
[2024-04-07 09:29] VITALS: BP 112/68
[2024-04-07 09:58] LABS: BASO % 0.5 % (0.0-1.0); EOS # 0.2 10*3/uL (0.0-0.4); EOS % 5.4 % (1.0-4.0); HEMATOCRIT 39.4 % (37.0-47.0); LYMPH % 24.2 % (27.0-41.0); MEAN CELL VOLUME 95.9 fl (81.0-99.0); MEAN CORPUSCULAR HGB 30.7 pg (27.0-31.0); MEAN PLATELET VOLUME 12.1 fl (9.6-12.3); MONO # 0.5 10*3/uL (0.1-1.0); MONO % 11.3 % (3.0-9.0); NEUT # 2.5 10*3/uL (2.3-7.9); NEUT % 58.4 % (47.0-73.0); PLATELET COUNT AUTOMATED 76 10*3/uL (130-400); RED BLOOD COUNT 4.11 10*6/uL (4.10-5.10); RED CELL DISTRI WIDTH 14.7 % (0-14.5); WHITE BLOOD COUNT 4.3 10*3/uL (4.8-10.8)
[2024-04-07 10:15] LABS: ACT PARTIAL THROMBO TIME 25.7 SECONDS (20.0-32.1)
[2024-04-07 10:25] LABS: ALKALINE PHOSPHATASE 57 U/L (46-116); BUN 12 mg/dl (9-23); CHLORIDE 104 mmol/L (98-107); POTASSIUM 3.8 mmol/L (3.4-5.1); SGPT/ALT 43 U/L (5-49); TOTAL PROTEIN 7.4 gm/dL (6.0-8.0)
[2024-04-07] MEDS ORDERED: VITAMIN D350 MC2 PO (10:55)
[2024-04-07 11:00] LABS: ABG BASE EXCESS 3.5 mmol/L (-2.0-2.0); ARTERIAL BLOOD GAS PH 7.391 (7.35-7.45)
[2024-04-07] MEDS ORDERED: NITROGLYCERIN1 EAC2 T (11:00)
[2024-04-07] MEDS ORDERED: AZITHROMYCIN 250 ML IV ONE (11:10)
[2024-04-07] MEDS ORDERED: Ceftriaxone Sodium 1 GM/10 ML SYR IV ONE (11:10)
[2024-04-07] MEDS ORDERED: Albuterol Sulf/Ipratropium 3 ML VIAL NEB ONE (11:10)
[2024-04-07] MEDS ORDERED: methylPREDNISolone sod succ 40 MG VIAL IV ONE (11:10)
[2024-04-07] MEDS ORDERED: BISACODYL 5 MG TAB PO PRN (12:55)
[2024-04-07] MEDS ORDERED: Ondansetron Hydrochloride 4 MG/2 ML VIAL IV PRN (12:55)
[2024-04-07] MEDS ORDERED: ACETAMINOPHEN 325 MG TAB PO PRN (12:55)
[2024-04-07] MEDS ORDERED: GUAIFENESIN 600 MG TAB ER PO SCH (13:05)
[2024-04-07] MEDS ORDERED: Albuterol Sulf/Ipratropium 3 ML VIAL NEB PRN (13:05)
[2024-04-07 13:58] VITALS: BP 109/51
[2024-04-07 20:54] VITALS: BP 131/67
[2024-04-07] MEDS ORDERED: methylPREDNISolone sod succ 40 MG VIAL IV SCH (22:00)
[2024-04-08 02:30] VITALS: BP 137/84
[2024-04-08 06:17] LABS: ACT PARTIAL THROMBO TIME 24.4 SECONDS (20.0-32.1); BASO % 0.2 % (0.0-1.0); HEMATOCRIT 38.7 % (37.0-47.0); LYMPH # 0.5 10*3/uL (1.3-4.4); LYMPH % 10.9 % (27.0-41.0); MEAN CELL VOLUME 94.9 fl (81.0-99.0); MEAN CORPUSCULAR HGB 30.6 pg (27.0-31.0); MEAN CORPUSCULAR HGB CONC 32.3 g/dl (33.0-37.0); MEAN PLATELET VOLUME 12.3 fl (9.6-12.3); MONO # 0.1 10*3/uL (0.1-1.0); MONO % 3.3 % (3.0-9.0); NEUT # 3.6 10*3/uL (2.3-7.9); NEUT % 85.4 % (47.0-73.0); PLATELET COUNT AUTOMATED 75 10*3/uL (130-400); RED BLOOD COUNT 4.08 10*6/uL (4.10-5.10); RED CELL DISTRI WIDTH 13.9 % (0-14.5); WHITE BLOOD COUNT 4.2 10*3/uL (4.8-10.8)
[2024-04-08 06:23] LABS: ALKALINE PHOSPHATASE 50 U/L (46-116); BUN 17 mg/dl (9-23); CHLORIDE 105 mmol/L (98-107); CHOLESTEROL 207 mg/dL (<200); FREE T4 0.83 ng/dl (0.89-1.76); LDL CHOLESTEROL 137 mg/dL (9-159); SGPT/ALT 45 U/L (5-49); TOTAL PROTEIN 7.2 gm/dL (6.0-8.0); TRIGLYCERIDES 70 mg/dl (<150)
[2024-04-08 07:30] VITALS: BP 110/76
[2024-04-08 08:44] LABS: VITAMIN D, 25-HYDROXY 52.6 ng/mL (30-100)
[2024-04-08] MEDS ORDERED: PREGABALIN 75 MG CAP PO SCH (10:00)
[2024-04-08] MEDS ORDERED: Ceftriaxone Sodium 1 GM,IV 1 EA in SYRINGE INFUSION 10 ML IV SCH (10:00)
[2024-04-08] MEDS ORDERED: Oxybutynin Chloride 5 MG TAB PO SCH (10:00)
[2024-04-08] MEDS ORDERED: ASPIRIN, CHEWABLE 81 MG TAB PO SCH (10:00)
[2024-04-08] MEDS ORDERED: Enoxaparin Sodium 40 MG/0.4 ML SYR SC SCH (10:00)
[2024-04-08] MEDS ORDERED: Pantoprazole Sodium 40 MG TAB PO SCH (10:00)
[2024-04-08] MEDS ORDERED: MULTIVITAMIN 1 TAB TAB PO SCH (10:00)
[2024-04-08] MEDS ORDERED: Fish Oil 500 MG CAP PO SCH (10:00)
[2024-04-08] MEDS ORDERED: GEMFIBROZIL 600 MG TAB PO SCH (10:00)
[2024-04-08] MEDS ORDERED: LORATADINE 10 MG TAB PO SCH (10:00)
[2024-04-08] MEDS ORDERED: CARVEDILOL 25 MG TAB PO SCH (10:00)
[2024-04-08] MEDS ORDERED: FERROUS SULFATE 325 MG TAB PO SCH (10:00)
[2024-04-08] MEDS ORDERED: ASCORBIC ACID 500 MG TAB PO SCH (10:00)
[2024-04-08] MEDS ORDERED: CALCIUM CARBONATE/VITAMIN D3 500 MG/200 IU TABLET PO SCH (10:00)
[2024-04-08] MEDS ORDERED: Cholecalciferol 2,000 UNIT TABLET (50 MCG) PO SCH (10:37)
[2024-04-08] MEDS ORDERED: CYANOCOBALAMIN 100 MCG TAB PO SCH (10:37)
[2024-04-08] MEDS ORDERED: AZITHROMYCIN 250 ML IV SCH (12:00)
[2024-04-08 13:00] VITALS: BP 104/72
[2024-04-08 15:00] VITALS: BP 110/70
[2024-04-08 15:50] VITALS: BP 138/58
[2024-04-08] MEDS ORDERED: Acetaminophen/Hydrocodone 5 MG/325 MG TABLET PO PRN (16:55)
[2024-04-08 20:00] VITALS: BP 136/61
[2024-04-08] MEDS ORDERED: OLANZAPINE 10 MG TAB PO SCH (22:00)
[2024-04-08] MEDS ORDERED: ATORVASTATIN CALCIUM 80 MG TAB PO SCH (22:00)
[2024-04-09] VITALS: BP 132/72
[2024-04-09 05:54] LABS: BUN 20 mg/dl (9-23); CHLORIDE 104 mmol/L (98-107); POTASSIUM 4.4 mmol/L (3.4-5.1)
[2024-04-09 06:12] LABS: HEMATOCRIT 38.6 % (37.0-47.0); LYMPH # 0.5 10*3/uL (1.3-4.4); LYMPH % 8.7 % (27.0-41.0); MEAN CELL VOLUME 95.8 fl (81.0-99.0); MEAN CORPUSCULAR HGB 30.3 pg (27.0-31.0); MEAN CORPUSCULAR HGB CONC 31.6 g/dl (33.0-37.0); MEAN PLATELET VOLUME 12.2 fl (9.6-12.3); MONO # 0.3 10*3/uL (0.1-1.0); MONO % 4.5 % (3.0-9.0); NEUT # 5.3 10*3/uL (2.3-7.9); NEUT % 86.2 % (47.0-73.0); PLATELET COUNT AUTOMATED 88 10*3/uL (130-400); RED BLOOD COUNT 4.03 10*6/uL (4.10-5.10); RED CELL DISTRI WIDTH 14.1 % (0-14.5); WHITE BLOOD COUNT 6.2 10*3/uL (4.8-10.8)
[2024-04-09 08:00] VITALS: BP 108/51
[2024-04-09 12:00] VITALS: BP 110/52
[2024-04-09 16:00] VITALS: BP 119/65
[2024-04-09 20:00] VITALS: BP 131/63
[2024-04-10] VITALS: BP 130/61
[2024-04-10 07:09] LABS: BASO % 0.2 % (0.0-1.0); HEMATOCRIT 37.6 % (37.0-47.0); LYMPH # 0.6 10*3/uL (1.3-4.4); LYMPH % 10.3 % (27.0-41.0); MEAN CELL VOLUME 94.2 fl (81.0-99.0); MEAN CORPUSCULAR HGB 30.6 pg (27.0-31.0); MEAN CORPUSCULAR HGB CONC 32.4 g/dl (33.0-37.0); MEAN PLATELET VOLUME 12.5 fl (9.6-12.3); MONO # 0.3 10*3/uL (0.1-1.0); NEUT # 4.9 10*3/uL (2.3-7.9); NEUT % 83.5 % (47.0-73.0); PLATELET COUNT AUTOMATED 94 10*3/uL (130-400); RED BLOOD COUNT 3.99 10*6/uL (4.10-5.10); RED CELL DISTRI WIDTH 14.3 % (0-14.5); WHITE BLOOD COUNT 5.9 10*3/uL (4.8-10.8)
[2024-04-10 07:38] LABS: BUN 21 mg/dl (9-23); CHLORIDE 103 mmol/L (98-107); POTASSIUM 4.7 mmol/L (3.4-5.1)
[2024-04-10 08:00] VITALS: BP 130/71
[2024-04-10 12:00] VITALS: BP 136/69
[2024-04-10 16:00] VITALS: BP 138/57
[2024-04-10 20:00] VITALS: BP 134/58
[2024-04-11] VITALS: BP 152/76
[2024-04-11 06:38] LABS: BASO % 0.2 % (0.0-1.0); HEMATOCRIT 38.8 % (37.0-47.0); LYMPH # 0.6 10*3/uL (1.3-4.4); LYMPH % 12.6 % (27.0-41.0); MEAN CELL VOLUME 95.6 fl (81.0-99.0); MEAN CORPUSCULAR HGB CONC 31.4 g/dl (33.0-37.0); MEAN PLATELET VOLUME 12.3 fl (9.6-12.3); MONO # 0.3 10*3/uL (0.1-1.0); MONO % 6.3 % (3.0-9.0); NEUT % 78.9 % (47.0-73.0); PLATELET COUNT AUTOMATED 105 10*3/uL (130-400); RED BLOOD COUNT 4.06 10*6/uL (4.10-5.10); RED CELL DISTRI WIDTH 14.1 % (0-14.5); WHITE BLOOD COUNT 5.1 10*3/uL (4.8-10.8)
[2024-04-11 06:39] LABS: BUN 21 mg/dl (9-23); CHLORIDE 102 mmol/L (98-107); POTASSIUM 4.7 mmol/L (3.4-5.1)
[2024-04-11 08:00] VITALS: BP 160/87
[2024-04-11] MEDS ORDERED: PREDNISONE10 MG PO (11:50)
[2024-04-11] MEDS ORDERED: ZITHROMAX250 MG PO (11:50)
[2024-04-11] MEDS ORDERED: MUCUS RELIEF600 MG PO (11:50)
[2024-04-11 12:00] VITALS: BP 149/79
== END 2024-04-11 13:15 | disposition home or self-care (01) | DRG 177 ==
LOC: ED 09:13 → 4E 11:17 → EDHOLD 11:17 → 4E 04-08 15:09
PROVIDERS: Internal Medicine; Student in an Organized Health Care Education/Training Program; ADMIT Internal Medicine; ATTEND Internal Medicine
PROC: 5A09357 Assistance with Respiratory Ventilation, Less than 24 Consecutive Hours, Continuous Positive Airway Pressure (ICD-10-PCS; principal; 2024-04-07)
PROC: 5A09357 Assistance with Respiratory Ventilation, Less than 24 Consecutive Hours, Continuous Positive Airway Pressure (ICD-10-PCS; 2024-04-08)
PROC: 5A09357 Assistance with Respiratory Ventilation, Less than 24 Consecutive Hours, Continuous Positive Airway Pressure (ICD-10-PCS; 2024-04-09)
PROC: 5A09357 Assistance with Respiratory Ventilation, Less than 24 Consecutive Hours, Continuous Positive Airway Pressure (ICD-10-PCS; 2024-04-10)
DX: J15.69 Pneumonia due to other Gram-negative bacteria (principal); J96.22 Acute and chronic respiratory failure with hypercapnia; J44.1 Chronic obstructive pulmonary disease with (acute) exacerbation; J44.0 Chronic obstructive pulmonary disease with (acute) lower respiratory infection; J98.11 Atelectasis; E87.3 Alkalosis; Z68.41 Body mass index [BMI] 40.0-44.9, adult; I25.10 Atherosclerotic heart disease of native coronary artery without angina pectoris; K21.9 Gastro-esophageal reflux disease without esophagitis; F17.210 Nicotine dependence, cigarettes, uncomplicated; E66.01 Morbid (severe) obesity due to excess calories; D69.6 Thrombocytopenia, unspecified; E78.2 Mixed hyperlipidemia; G47.33 Obstructive sleep apnea (adult) (pediatric); I25.708 Atherosclerosis of coronary artery bypass graft(s), unspecified, with other forms of angina pectoris; I10 Essential (primary) hypertension; Z90.710 Acquired absence of both cervix and uterus; Z95.5 Presence of coronary angioplasty implant and graft; Z88.6 Allergy status to analgesic agent; Z88.7 Allergy status to serum and vaccine; Z82.49 Family history of ischemic heart disease and other diseases of the circulatory system; Z88.1 Allergy status to other antibiotic agents; Z79.51 Long term (current) use of inhaled steroids; Z79.82 Long term (current) use of aspirin; Z79.899 Other long term (current) drug therapy; Z79.1 Long term (current) use of non-steroidal anti-inflammatories (NSAID)

== ENCOUNTER → 2024-06-18 | Outpatient (CLI) | payer MEDICARE, OTHER ==
[~2024-06-18] MED LIST changes: +MUCUS RELIEF600 MG PO; +NITROGLYCERIN1 EAC2 T; +VITAMIN D350 MC2 PO
== END | disposition home or self-care (01) ==
LOC: LAB 15:32
DX: R60.0 Localized edema (principal)

== ENCOUNTER → 2024-08-17 | Outpatient (CLI) | payer MEDICARE, OTHER | END | disposition home or self-care (01) | LOC: US 12:10 | PROVIDERS: ATTEND Nurse Practitioner Family | DX: R60.0 Localized edema (principal) ==

== ENCOUNTER 2024-12-11 09:07 | Emergency (ER) | payer OTHER ==
[~2024-12-11] VITALS: Wt 127.0 kg
[2024-12-11] MEDS ORDERED: Acetaminophen/Oxycodone 5 MG/325 MG TABLET PO ONE (09:15)
== END 2024-12-11 12:45 | disposition home or self-care (01) ==
LOC: ED 09:07
DX: S42.202A Unspecified fracture of upper end of left humerus, initial encounter for closed fracture (principal); S05.11XA Contusion of eyeball and orbital tissues, right eye, initial encounter; J44.9 Chronic obstructive pulmonary disease, unspecified; M25.561 Pain in right knee; M79.641 Pain in right hand; R51.9 Headache, unspecified; I10 Essential (primary) hypertension; I25.10 Atherosclerotic heart disease of native coronary artery without angina pectoris; Z53.29 Procedure and treatment not carried out because of patient's decision for other reasons; E11.9 Type 2 diabetes mellitus without complications; F41.9 Anxiety disorder, unspecified; I25.2 Old myocardial infarction; E78.00 Pure hypercholesterolemia, unspecified; K21.9 Gastro-esophageal reflux disease without esophagitis; I48.91 Unspecified atrial fibrillation; F32.A Depression, unspecified; Z88.7 Allergy status to serum and vaccine; Z91.048 Other nonmedicinal substance allergy status; Z88.1 Allergy status to other antibiotic agents; Z88.2 Allergy status to sulfonamides; Z88.8 Allergy status to other drugs, medicaments and biological substances; Z95.5 Presence of coronary angioplasty implant and graft; Z90.710 Acquired absence of both cervix and uterus; Z90.49 Acquired absence of other specified parts of digestive tract; Z98.890 Other specified postprocedural states; W01.190A Fall on same level from slipping, tripping and stumbling with subsequent striking against furniture, initial encounter; Y93.89 Activity, other specified; Y92.89 Other specified places as the place of occurrence of the external cause; Y99.8 Other external cause status

== ENCOUNTER → 2024-12-31 | Outpatient (CLI) | payer OTHER | END | disposition home or self-care (01) | LOC: ORTHO 08:22 | PROVIDERS: ATTEND Orthopaedic Surgery | DX: S42.265A Nondisplaced fracture of lesser tuberosity of left humerus, initial encounter for closed fracture (principal); M19.012 Primary osteoarthritis, left shoulder; X58.XXXA Exposure to other specified factors, initial encounter; Y93.89 Activity, other specified; Y92.89 Other specified places as the place of occurrence of the external cause; Y99.8 Other external cause status ==

== ENCOUNTER 2025-02-09 13:09 | Emergency (ER) | payer OTHER ==
[~2025-02-09] VITALS: Ht 152.4 cm; Wt 104.3 kg
[2025-02-09 14:16] LABS: HEMATOCRIT 38.6 % (37.0-47.0); MEAN CELL VOLUME 90.8 fl (81.0-99.0); MEAN CORPUSCULAR HGB 29.6 pg (27.0-31.0); MEAN CORPUSCULAR HGB CONC 32.6 g/dl (33.0-37.0); MEAN PLATELET VOLUME 11.1 fl (9.6-12.3); PLATELET COUNT AUTOMATED 103 10*3/uL (130-400); RED BLOOD COUNT 4.25 10*6/uL (4.10-5.10); RED CELL DISTRI WIDTH 15.7 % (0-14.5); WHITE BLOOD COUNT 5.1 10*3/uL (4.8-10.8)
[2025-02-09 14:33] LABS: BUN 18 mg/dl (9-23); CHLORIDE 103 mmol/L (98-107)
[2025-02-09 14:42] LABS: MANUAL DIFF REFLEX YES
[2025-02-09] MEDS ORDERED: VIBRAMYCIN100 MG PO (14:44)
[2025-02-09] MEDS ORDERED: Doxycycline Hyclate 100 MG TAB PO ONE (14:45)
[2025-02-09 14:46] LABS: PLATELET SUFFICIENCY LOW (NORMAL); TOTAL CELLS COUNTED 100 #CELLS
== END 2025-02-09 14:58 | disposition home or self-care (01) ==
LOC: ED 13:09
PROVIDERS: Nurse Practitioner Family
DX: L03.116 Cellulitis of left lower limb (principal); Z88.7 Allergy status to serum and vaccine; Z91.048 Other nonmedicinal substance allergy status; Z88.1 Allergy status to other antibiotic agents; Z88.8 Allergy status to other drugs, medicaments and biological substances; Z88.2 Allergy status to sulfonamides; Z79.899 Other long term (current) drug therapy; Z79.82 Long term (current) use of aspirin; Z95.5 Presence of coronary angioplasty implant and graft; Z90.710 Acquired absence of both cervix and uterus; Z98.890 Other specified postprocedural states; Z90.49 Acquired absence of other specified parts of digestive tract; Z87.891 Personal history of nicotine dependence

== ENCOUNTER 2025-10-05 17:29 | Emergency (ER) | payer OTHER ==
[~2025-10-05] VITALS: Ht 152.4 cm; Wt 106.6 kg
[~2025-10-05 17:29] MED LIST changes: +VIBRA-TAB100 MG PO
[2025-10-05 18:24] LABS: MEAN CELL VOLUME 96.4 fl (81.0-99.0); MEAN CORPUSCULAR HGB 30.0 pg (27.0-31.0); MEAN PLATELET VOLUME 11.7 fl (9.6-12.3); NUCLEATED RED BLOOD CELL 0.0 % (0.0-0.0); NUCLEATED RED BLOOD CELL 0.0 10*3/uL (0.0-0.0); PLATELET COUNT AUTOMATED 100 10*3/uL (130-400); RED CELL DISTRI WIDTH 14.3 % (0-14.5)
[2025-10-05 18:25] LABS: MANUAL DIFF REFLEX YES
[2025-10-05 18:47] LABS: BUN 21 mg/dl (9-23); SGPT/ALT 24 U/L (5-49)
[2025-10-05 18:54] LABS: PLATELET SUFFICIENCY LOW (NORMAL)
[2025-10-05 19:28] LABS: ACT PARTIAL THROMBO TIME 26.4 SECONDS (20.0-32.1)
[2025-10-05] MEDS ORDERED: CLINDAMYCIN HC300 MG PO (20:31)
== END 2025-10-05 20:59 | disposition home or self-care (01) ==
LOC: ED 17:29
PROVIDERS: Emergency Medicine
DX: L03.116 Cellulitis of left lower limb (principal); I10 Essential (primary) hypertension; I25.10 Atherosclerotic heart disease of native coronary artery without angina pectoris; E11.9 Type 2 diabetes mellitus without complications; F41.9 Anxiety disorder, unspecified; J44.9 Chronic obstructive pulmonary disease, unspecified; G47.30 Sleep apnea, unspecified; E78.00 Pure hypercholesterolemia, unspecified; K21.9 Gastro-esophageal reflux disease without esophagitis; I48.91 Unspecified atrial fibrillation; Z98.890 Other specified postprocedural states; Z90.710 Acquired absence of both cervix and uterus; Z90.49 Acquired absence of other specified parts of digestive tract; Z88.1 Allergy status to other antibiotic agents; Z88.8 Allergy status to other drugs, medicaments and biological substances

== ENCOUNTER 2025-10-24 14:26 | Emergency (ER) | payer OTHER ==
[~2025-10-24] VITALS: Ht 152.4 cm; Wt 106.6 kg
[~2025-10-24 14:26] MED LIST changes: +CLINDAMYCIN HC300 MG PO
[2025-10-24 15:48] LABS: BASO # 0.1 10*3/uL (0.0-0.1); BASO % 0.8 % (0.0-1.0); EOS # 0.2 10*3/uL (0.0-0.4); EOS % 3.1 % (1.0-4.0); MEAN CELL VOLUME 91.7 fl (81.0-99.0); MEAN CORPUSCULAR HGB 30.4 pg (27.0-31.0); MEAN PLATELET VOLUME 11.3 fl (9.6-12.3); MONO # 0.7 10*3/uL (0.1-1.0); MONO % 10.3 % (3.0-9.0); NEUT # 4.8 10*3/uL (2.3-7.9); NEUT % 73.9 % (47.0-73.0); NUCLEATED RED BLOOD CELL 0.0 % (0.0-0.0); NUCLEATED RED BLOOD CELL 0.0 10*3/uL (0.0-0.0); PLATELET COUNT AUTOMATED 114 10*3/uL (130-400); RED CELL DISTRI WIDTH 13.9 % (0-14.5)
[2025-10-24 15:49] LABS: BILIRUBIN 2+ (Negative); BLOOD Negative (Negative); CLARITY Clear (Clear); COLOR Dark Yellow (Yellow); KETONE Trace (Negative); LEUKO ESTERASE 2+ (Negative); NITRITE Negative (Negative); PH 5.5 (4.5-8.0); SPECIFIC GRAVITY >= 1.030 (1.001-1.030); UROBILINOGEN 2.0 E.U./dl (0.0-1.0)
[2025-10-24 15:56] LABS: WBC 31-40 wbc/hpf (0-5)
[2025-10-24 15:57] LABS: BACTERIA 2+; CALCIUM OXALATE CRYSTALS 2+; MUCOUS 3+
[2025-10-24 16:08] LABS: BUN 14 mg/dl (9-23)
[2025-10-24] MEDS ORDERED: ATHLETIC FOOT C30 GM T ×2 (17:01→17:02)
[2025-10-24] MEDS ORDERED: CLOTRIMAZOLE 15 GM TUBE T ONE (17:05)
[2025-10-24] MEDS ORDERED: FLUCONAZOLE 150 MG TAB PO ONE (17:05)
[2025-10-24] MEDS ORDERED: CEPHALEXIN 500 MG CAP PO ONE (17:05)
== END 2025-10-24 17:25 | disposition home or self-care (01) ==
LOC: ED 14:26
PROVIDERS: Nurse Practitioner Family
DX: N39.0 Urinary tract infection, site not specified (principal); L30.4 Erythema intertrigo; B37.31 Acute candidiasis of vulva and vagina; I12.9 Hypertensive chronic kidney disease with stage 1 through stage 4 chronic kidney disease, or unspecified chronic kidney disease; N18.30 Chronic kidney disease, stage 3 unspecified; I25.10 Atherosclerotic heart disease of native coronary artery without angina pectoris; I48.91 Unspecified atrial fibrillation; J45.909 Unspecified asthma, uncomplicated; J44.9 Chronic obstructive pulmonary disease, unspecified; K21.9 Gastro-esophageal reflux disease without esophagitis; E78.5 Hyperlipidemia, unspecified; G47.30 Sleep apnea, unspecified; M19.90 Unspecified osteoarthritis, unspecified site; E11.9 Type 2 diabetes mellitus without complications; E66.9 Obesity, unspecified; Z88.1 Allergy status to other antibiotic agents; Z88.8 Allergy status to other drugs, medicaments and biological substances; Z68.30 Body mass index [BMI] 30.0-30.9, adult

== ENCOUNTER → 2025-11-01 | Outpatient (CLI) | payer OTHER ==
[~2025-11-01] MED LIST changes: +ATHLETIC FOOT C30 GM T
== END | disposition home or self-care (01) ==
LOC: NM 10-30 10:00
PROVIDERS: ATTEND Orthopaedic Surgery
DX: M84.30XA Stress fracture, unspecified site, initial encounter for fracture (principal); M89.8X8 Other specified disorders of bone, other site; X58.XXXA Exposure to other specified factors, initial encounter; Y93.89 Activity, other specified; Y92.89 Other specified places as the place of occurrence of the external cause; Y99.8 Other external cause status